=== PATIENT | male | born 1935 | race Caucasian/White ===

== ENCOUNTER 2016-08-16 09:29 | Inpatient (IN) | payer MEDICARE, OTHER ==
[~2016-08-16] VITALS: Ht 170.2 cm; Wt 97.9 kg
[2016-08-16] VITALS (7 sets, daily range): BP systolic 128–161; BP diastolic 63–88; PULSE 73–93; RESP 16–20; TEMP 97.6–98.3; O2SAT 93–98
[~2016-08-16 09:29] MED LIST: ATAC16TA; CARD8TAB6; CIPR250T2 PO; LEVO.15
[2016-08-16] MEDS ORDERED: DOXA1TAB43 PO (09:44)
[2016-08-16] MEDS ORDERED: LOSA100T PO (09:44)
[2016-08-16] MEDS ORDERED: LEVO125T4 PO (09:44)
[2016-08-16] MEDS ORDERED: HYDR12.56 PO (09:44)
[2016-08-16] MEDS ORDERED: SODIUM CHLORIDE 0.9% FLUSH 10 ML FLUSH IVF PRN (10:00)
[2016-08-16 10:12] LABS: AUTOMATED NEUTROPHIL # 5.6 TH/MM3 (1.8-7.7); BASOPHIL # 0.1 TH/MM3 (0-0.2); BASOPHIL % 0.8 % (0.0-2.0); EOSINOPHIL # 0.2 TH/MM3 (0-0.4); EOSINOPHIL % 2.4 % (0.0-4.0); HEMATOCRIT 41.9 % (39.0-51.0); HEMO FLAGS DIFF FINAL; LYMPH % 13.1 % (9.0-44.0); LYMPHOCYTE # 0.9 TH/MM3 (1.0-4.8); MEAN CELL VOLUME 95.3 FL (80.0-100.0); MEAN CORPUSCULAR HEMOGLOBIN 32.5 PG (27.0-34.0); MEAN CORPUSCULAR HGB CONC 34.1 % (32.0-36.0); MONO % 6.5 % (0.0-8.0); NEUT % 77.2 % (16.0-70.0); PLATELET COUNT 175 TH/MM3 (150-450); RED CELL DISTRIBUTION WIDTH 13.5 % (11.6-17.2); WHITE BLOOD COUNT 7.2 TH/MM3 (4.0-11.0)
[2016-08-16 10:21] LABS: APTT (PATIENT) 24.6 SEC (24.3-30.1); PROTHROMBIN TIME - PATIENT 10.7 SEC (9.8-11.6)
[2016-08-16 10:28] LABS: ALT (GPT) 29 U/L (12-78); ANION GAP 7 MEQ/L (5-15); AST (GOT) 24 U/L (15-37); BICARBONATE 24.5 MEQ/L (21.0-32.0); BLOOD UREA NITROGEN 16 MG/DL (7-18); CHLORIDE 108 MEQ/L (98-107); GLOMERULAR FILTRATION RATE 59 ML/MIN (>89); POTASSIUM 3.7 MEQ/L (3.5-5.1); SODIUM (NA) 139 MEQ/L (136-145)
[2016-08-16 10:32] LABS: ALKALINE PHOSPHATASE 80 U/L (45-117); TOTAL BILIRUBIN ADULT 0.9 MG/DL (0.2-1.0)
--- NOTE | 2016-08-16 10:34 | RADRPT ---
EXAM DATE/TIME: 08/16/2016 10:14 [place] COMPARISON: No previous studies available for comparison. INDICATIONS : Shortness of breath and chest pain. MEDICAL HISTORY : None. SURGICAL HISTORY : None. ENCOUNTER: Initial ACUITY: 1 day PAIN SCORE: 2/10 LOCATION: Bilateral chest. FINDINGS: The heart size is enlarged. The lungs are grossly clear. No effusion is seen. Spurs are seen in the t horacic spine CONCLUSION: Cardiomegaly Lauro Barksdale MD on August 16, 2016 at 10:32 Board Certified Radiologist. This report was verified electronically.
--- NOTE | 2016-08-16 11:38 | PD ---
HPI Chief Complaint: Respiratory Distress Time Seen by Provider: 09:55 Travel History International Travel<30 days: No Contact w/Intl Traveler<30days: No Traveled to known affect area: No History of Present Illness HPI Patient is an 80-year-old male who comes in after he had an episode of gasping for air earlier today. He said he woke up and went to take a shower when he suddenly felt like he could not breathe. He said this lasted about 5 minutes. He also complains of some orthopnea and dyspnea on exertion. He says he has not really noticed any swelling of his legs. He does take Lasix. He denies any chest pain. He denies any cough, cold, fevers. PFSH Past Medical History Diminished Hearing: Yes Hypertension: Yes Immunizations Current: Yes Thyroid Disease: Yes (HYPO) Tetanus Vaccination: < 5 Years Influenza Vaccination: Yes Past Surgical History Cholecystectomy: Yes (2002) Tonsillectomy: Yes Social History Alcohol Use: No Tobacco Use: No Substance Use: No Allergies-Medications (Allergen,Severity, Reaction): Coded Allergies: No Known Allergies (Verified , 08/23/09) Reported Meds & Prescriptions Reported Meds & Active Scripts Active Ciprofloxacin Hcl (Ciprofloxacin HCl) 250 Mg Tab 1 Tab PO BID Reported Hydrochlorothiazide 12.5 Mg Tab 12.5 Mg PO DAILY Levothyroxine (Levothyroxine Sodium) 125 Mcg Tab 125 Mcg PO DAILY Losartan (Losartan Potassium) 100 Mg Tab 100 Mg PO DAILY Doxazosin (Doxazosin Mesylate) 8 Mg Tab 8 Mg PO DAILY Cardura 8 mg (Doxazosin Mesylate) 8 Mg Tab Synthroid (Levothyroxine Sodium) 150 Mcg Tab Atacand (Candesartan Cilexetil) 16 Mg Tab Review of Systems Except as stated in HPI: all other systems reviewed are Neg General / Constitutional: No: Fever, Chills HENT: No: Headaches, Lightheadedness Cardiovascular: No: Chest Pain or Discomfort Respiratory: Positive: Shortness of Breath Gastrointestinal: No: Nausea, Vomiting Musculoskeletal: No: Edema, Pain Skin: No Change in Pigmentation Neurologic: No: Weakness, Dizziness Physical Exam Narrative GENERAL: Awake and alert, in no acute distress. SKIN: Focused skin assessment warm/dry. HEAD: Atraumatic. Normocephalic. EYES: Pupils equal and round. No scleral icterus. ENT: Mucous membranes pink and moist. NECK: Trachea midline. No JVD. CARDIOVASCULAR: Regular rate and rhythm. No murmur appreciated. RESPIRATORY: No accessory muscle use. Clear to auscultation. Breath sounds equal bilaterally. GASTROINTESTINAL: Abdomen soft, non-tender, nondistended. MUSCULOSKELETAL: No obvious deformities. No clubbing. No cyanosis. No edema. NEUROLOGICAL: Awake and alert. No obvious cranial nerve deficits. Motor grossly within normal limits. Normal speech. PSYCHIATRIC: Appropriate mood and affect; insight and judgment normal. Data Data Last Documented VS Vital Signs Date Time Temp Pulse Resp B/P Pulse Ox O2 Delivery O2 Flow Rate FiO2 08/16/16 10:08 95 Room Air 08/16/16 10:08 74 08/16/16 09:36 98.3 20 161/74 Orders Complete Blood Count With Diff (08/16/16 09:56) Comprehensive Metabolic Panel (08/16/16 09:56) B-Type Natriuretic Peptide (08/16/16 09:56) Act Partial Throm Time (Ptt) (08/16/16 09:56) Prothrombin Time / Inr (Pt) (08/16/16 09:56) Troponin I (08/16/16 09:56) Iv Access Insert/Monitor (08/16/16 09:56) Ecg Monitoring (08/16/16 09:56) Oximetry (08/16/16 09:56) Oxygen Administration (08/16/16 09:56) Chest, Pa & Lat (08/16/16 09:56) Sodium Chloride 0.9% Flush (Ns Flush) (08/16/16 10:00) Admit Order (Ed Use Only) (08/16/16 ) Labs Laboratory Tests Test 08/16/16 10:00 White Blood Count 7.2 TH/MM3 Red Blood Count 4.40 MIL/MM3 Hemoglobin 14.3 GM/DL Hematocrit 41.9 % Mean Corpuscular Volume 95.3 FL Mean Corpuscular Hemoglobin 32.5 PG Mean Corpuscular Hemoglobin 34.1 % Concent Red Cell Distribution Width 13.5 % Platelet Count 175 TH/MM3 Mean Platelet Volume 7.9 FL Neutrophils (%) (Auto) 77.2 % Lymphocytes (%) (Auto) 13.1 % Monocytes (%) (Auto) 6.5 % Eosinophils (%) (Auto) 2.4 % Basophils (%) (Auto) 0.8 % Neutrophils # (Auto) 5.6 TH/MM3 Lymphocytes # (Auto) 0.9 TH/MM3 Monocytes # (Auto) 0.5 TH/MM3 Eosinophils # (Auto) 0.2 TH/MM3 Basophils # (Auto) 0.1 TH/MM3 CBC Comment DIFF FINAL Differential Comment Prothrombin Time 10.7 SEC Prothromb Time International 1.0 RATIO Ratio Activated Partial 24.6 SEC Thromboplast Time Sodium Level 139 MEQ/L Potassium Level 3.7 MEQ/L Chloride Level 108 MEQ/L Carbon Dioxide Level 24.5 MEQ/L Anion Gap 7 MEQ/L Blood Urea Nitrogen 16 MG/DL Creatinine 1.19 MG/DL Estimat Glomerular Filtration 59 ML/MIN Rate Random Glucose 147 MG/DL Calcium Level 9.1 MG/DL Total Bilirubin 0.9 MG/DL Aspartate Amino Transf 24 U/L (AST/SGOT) Alanine Aminotransferase 29 U/L (ALT/SGPT) Alkaline Phosphatase 80 U/L Troponin I 0.02 NG/ML B-Type Natriuretic Peptide 284 PG/ML Total Protein 6.9 GM/DL Albumin 3.6 GM/DL MDM Medical Decision Making Medical Screen Exam Complete: Yes Emergency Medical Condition: Yes Interpretation(s) ECG shows left bundle-branch block, no old to compare to. Differential Diagnosis Pneumonia versus CHF versus ACS Narrative Course Patient is an 80-year-old male who comes in after an episode of shortness of breath. Exam shows no acute abnormalities. IV established, labs sent. Patient connected to the youth nutritional monitor. Chest x-ray performed shows cardiomegaly, no edema. Lab shows a BNP of 284. Troponin is negative. Shortness of breath is likely due to CHF, though patient has never been formally diagnosed with this. Patient placed in observation for CHF and ACS rule out. He received aspirin by EMS. Diagnosis Primary Impression: CHF (congestive heart failure) Qualified Code: I50.9 - Acute congestive heart failure, unspecified congestive heart failure type Admitting Information Admitting Physician Requests: Observation Condition: Stable Almita Alves MD Aug 16, 2016 11:38
[2016-08-16] MEDS ORDERED: SODIUM CHLORIDE 0.9% FLUSH 10 ML FLUSH IV FLUSH PRN (11:45)
[2016-08-16] MEDS ORDERED: NALOXONE HCL 0.4 MG/ML AMP IV PRN (11:45)
[2016-08-16] MEDS ORDERED: ACETAMINOPHEN 325 MG TAB PO PRN (11:45)
[2016-08-16] MEDS ORDERED: ONDANSETRON HCL 4 MG/2 ML VIAL IVP PRN (11:45)
[2016-08-16] MEDS: ENOXAPARIN SODIUM 40 MG/0.4 ML SYRINGE SQ SCH (12:33)
[2016-08-16] MEDS: FUROSEMIDE 20 MG/2 ML VIAL IV PUSH SCH ×2 (12:33→17:39)
--- NOTE | 2016-08-16 16:18 | HHI.HP ---
[facility] Service [facility] Primary Care Physician Non-Staff Admission Diagnosis CHF, ACS Diagnoses: (1) Acute respiratory distress Diagnosis: Principal (2) Elevated brain natriuretic peptide (BNP) level Diagnosis: Principal Travel History International Travel<30 Days: No Contact w/Intl Traveler <30 Da: No Traveled to Known Affected Are: No History of Present Illness Mr. Damon is an 80 year old male. This morning he awoke with respiratory distress. He came into the ER for an evaluation. Findings might suggest CHF, though he has not history of CHF. BNP is elevated. He reports that he has HTN at baseline, but no other conditions. Alternate causes of is fluid excess and acute dyspnea could be an allergic reaction, a viral manifestation, or flash pulmonary edema. He has no history of flash pulmonary edema. He has no other viral symptoms. He did eat oysters the preceding night and does not typically go out or consume sea food. His reports that he may have had symptoms of increased, but mild dyspnea with exertion in the past month. No other complaints. no chest pain. No distress when seen. Review of Systems Constitutional: DENIES: Diaphoretic episodes, Weight loss, Dizziness Endocrine: DENIES: Heat/cold intolerance Eyes: DENIES: Blurred vision, Diplopia Respiratory: COMPLAINS OF: Shortness of breath Cardiovascular: DENIES: Chest pain, Syncope Gastrointestinal: DENIES: Abdominal pain, Bloody stools Musculoskeletal: DENIES: Joint pain, Stiffness Integumentary: DENIES: Abnormal pigmentation Hematologic/lymphatic: DENIES: Bruising Immunologic/allergic: DENIES: Eczema Neurologic: DENIES: Abnormal gait, Headache Psychiatric: DENIES: Anxiety, Confusion Past Family Social History Past Medical History HTN Hypothyroidism Past Surgical History none reported Reported Medications Reported Meds & Active Scripts Active Ciprofloxacin Hcl (Ciprofloxacin HCl) 250 Mg Tab 1 Tab PO BID Reported Hydrochlorothiazide 12.5 Mg Tab 12.5 Mg PO DAILY Levothyroxine (Levothyroxine Sodium) 125 Mcg Tab 125 Mcg PO DAILY Losartan (Losartan Potassium) 100 Mg Tab 100 Mg PO DAILY Doxazosin (Doxazosin Mesylate) 8 Mg Tab 8 Mg PO DAILY Cardura 8 mg (Doxazosin Mesylate) 8 Mg Tab Synthroid (Levothyroxine Sodium) 150 Mcg Tab Atacand (Candesartan Cilexetil) 16 Mg Tab Allergies: Coded Allergies: No Known Allergies (Verified , 08/23/09) Active Ordered Medications Administered Medications Medications (Trade) Dose Ordered Sig/Sally Route PRN Reason Start Time Stop Time Status Last Admin Dose Admin Enoxaparin Sodium (Lovenox Inj) 40 mg Q24H SQ 08/16/16 11:45 08/16/16 12:33 Furosemide (Lasix Inj) 20 mg BID@09,18 IV PUSH 08/16/16 11:45 08/16/16 12:33 Family History HTN Social History No smoking No alcohol abuse No drug abuse Physical Exam Vital Signs Vital Signs Date Time Temp Pulse Resp B/P Pulse Ox O2 Delivery O2 Flow Rate FiO2 08/16/16 13:16 75 16 154/88 98 08/16/16 10:08 95 Room Air 08/16/16 10:08 74 08/16/16 09:36 98.3 93 20 161/74 93 Physical Exam GENERAL: NAD, A&Ox3 SKIN: Warm and dry. No diaphoresis HEAD: Normocephalic. EYES: No scleral icterus. No injection or drainage. NECK: Supple, trachea midline. No JVD or lymphadenopathy. CARDIOVASCULAR: Regular rate and rhythm without murmurs, gallops, or rubs. No visualized JVD elevation. RESPIRATORY: Breath sounds equal bilaterally. No accessory muscle use. Clear to auscultation bilaterally. GASTROINTESTINAL: Abdomen soft, non-tender, nondistended. MUSCULOSKELETAL: No cyanosis, or edema. BACK: Nontender without obvious deformity. No CVA tenderness. Laboratory Laboratory Tests Test 08/16/16 10:00 White Blood Count 7.2 Red Blood Count 4.40 Hemoglobin 14.3 Hematocrit 41.9 Mean Corpuscular Volume 95.3 Mean Corpuscular Hemoglobin 32.5 Mean Corpuscular Hemoglobin 34.1 Concent Red Cell Distribution Width 13.5 Platelet Count 175 Mean Platelet Volume 7.9 Neutrophils (%) (Auto) 77.2 Lymphocytes (%) (Auto) 13.1 Monocytes (%) (Auto) 6.5 Eosinophils (%) (Auto) 2.4 Basophils (%) (Auto) 0.8 Neutrophils # (Auto) 5.6 Lymphocytes # (Auto) 0.9 Monocytes # (Auto) 0.5 Eosinophils # (Auto) 0.2 Basophils # (Auto) 0.1 CBC Comment DIFF FINAL Differential Comment Prothrombin Time 10.7 Prothromb Time International 1.0 Ratio Activated Partial 24.6 Thromboplast Time Sodium Level 139 Potassium Level 3.7 Chloride Level 108 Carbon Dioxide Level 24.5 Anion Gap 7 Blood Urea Nitrogen 16 Creatinine 1.19 Estimat Glomerular Filtration 59 Rate Random Glucose 147 Calcium Level 9.1 Total Bilirubin 0.9 Aspartate Amino Transf 24 (AST/SGOT) Alanine Aminotransferase 29 (ALT/SGPT) Alkaline Phosphatase 80 Troponin I 0.02 B-Type Natriuretic Peptide 284 Total Protein 6.9 Albumin 3.6 Result Diagram: 08/16/16 1000 08/16/16 1000 Imaging Last Impressions Chest X-Ray 08/16/16 0956 Signed Impressions: Service Date/Time: Tuesday, August 16, 2016 10:14 - CONCLUSION: Cardiomegaly Lauro Barksdale MD Assessment and Plan Problem List: (1) Acute respiratory distress ICD Code: R06.00 Status: Acute (2) Elevated brain natriuretic peptide (BNP) level ICD Code: R79.89 Status: Acute (3) HTN (hypertension) ICD Code: I10 Status: Chronic (4) Hypothyroid ICD Code: E03.9 Status: Chronic Assessment and Plan A/P: Acute Respiratory Distress Elevated BNP Possible underlying CHF Evaluate with an echocardiogram Alternatively he may have had an allergic reaction Follow clinically for signs of allergy, no treatment at this time due to spontaneous resolution of symptoms Lasix BID for now Repeat BNP in AM HTN Continue baseline treatments Follow BP Hypothyroidism Continue synthroid Follow as an outpatient Physician Certification 2 Midnight Certification Type: Admission for Inpatient Services Order for Inpatient Services The services are ordered in accordance with Medicare regulations or non- Medicare payer requirements, as applicable. In the case of services not specified as inpatient-only, they are appropriately provided as inpatient services in accordance with the 2-midnight benchmark. Estimated LOS (days): 2 days is the estimated time the patient will need to remain in the hospital, assuming treatment plan goals are met and no additional complications. Post-Hospital Plan: Naga Guerra MD Aug 16, 2016 16:18
[2016-08-16] MEDS: SODIUM CHLORIDE 0.9% FLUSH 10 ML FLUSH IV FLUSH SCH (23:01)
[2016-08-17] VITALS (7 sets, daily range): BP systolic 109–130; BP diastolic 51–61; PULSE 67–83; RESP 16–18; TEMP 97.6–98.6; O2SAT 92–97
[2016-08-17 04:20] LABS: AUTOMATED NEUTROPHIL # 4.9 TH/MM3 (1.8-7.7); BASOPHIL # 0.1 TH/MM3 (0-0.2); BASOPHIL % 0.9 % (0.0-2.0); EOSINOPHIL # 0.2 TH/MM3 (0-0.4); EOSINOPHIL % 2.8 % (0.0-4.0); HEMATOCRIT 39.8 % (39.0-51.0); HEMO FLAGS DIFF FINAL; LYMPH % 23.9 % (9.0-44.0); LYMPHOCYTE # 1.9 TH/MM3 (1.0-4.8); MEAN CELL VOLUME 94.9 FL (80.0-100.0); MEAN CORPUSCULAR HEMOGLOBIN 32.8 PG (27.0-34.0); MEAN CORPUSCULAR HGB CONC 34.5 % (32.0-36.0); MONO % 10.4 % (0.0-8.0); PLATELET COUNT 187 TH/MM3 (150-450); RED CELL DISTRIBUTION WIDTH 13.7 % (11.6-17.2); WHITE BLOOD COUNT 7.9 TH/MM3 (4.0-11.0)
[2016-08-17 04:41] LABS: BICARBONATE 27.4 MEQ/L (21.0-32.0); POTASSIUM 3.6 MEQ/L (3.5-5.1)
[2016-08-17] MEDS: LEVOTHYROXINE SODIUM 125 MCG TAB PO SCH (05:23)
[2016-08-17] MEDS ORDERED: DOXAZOSIN MESYLATE 4 MG TAB PO SCH (09:00)
[2016-08-17] MEDS ORDERED: PNEUMOCOCCAL POLYVALENT INJ 25 MCG/0.5 ML SYR IM ONE (09:00)
[2016-08-17] MEDS: SODIUM CHLORIDE 0.9% FLUSH 10 ML FLUSH IV FLUSH SCH ×2 (13:17→20:38)
[2016-08-17] MEDS: LOSARTAN 50 MG TAB PO SCH (13:18)
[2016-08-17] MEDS: ENOXAPARIN SODIUM 40 MG/0.4 ML SYRINGE SQ SCH (13:18)
--- NOTE | 2016-08-17 14:25 | EKG ---
Date Performed: 08/16/2016 Time Performed: 09:43:37 PTAGE: 80 years EKG: Sinus rhythm MARKED LEFT AXIS DEVIATION LEFT BUNDLE BRANCH BLOCK ABNORMAL ECG NO PREVIOUS TRACING DOCTOR: Vince Corley Interpretating Date/Time 08/17/2016 14:22:23
--- NOTE | 2016-08-17 16:45 | HHI.PR ---
Subjective Remarks Preliminary echo finding is an EF of 45-50%. Official echo report is pending. He has not had any other symptoms. His only complaint today is difficulty sleeping in the hospital. Objective Vital Signs Date Time Temp Pulse Resp B/P Pulse Ox O2 Delivery O2 Flow Rate FiO2 08/17/16 12:00 97.6 73 16 109/61 96 08/17/16 08:00 98.0 83 16 123/58 95 08/17/16 04:00 97.9 67 18 130/60 92 08/17/16 00:00 98.6 70 18 109/51 95 08/16/16 20:12 88 08/16/16 20:00 97.6 73 18 128/63 93 08/16/16 17:30 98.1 76 18 139/72 95 I/O 08/16/16 08/16/16 08/16/16 08/17/16 08/17/16 08/17/16 07:00 15:00 23:00 07:00 15:00 23:00 Intake Total 480 ml 340 ml Output Total 550 ml Balance -70 ml 340 ml Intake Oral 480 ml 340 ml Output Urine Total 550 ml # Voids 2 # Bowel Movements 0 Result Diagram: 08/17/16 0341 08/17/16 0341 Imaging Last Impressions Chest X-Ray 08/16/16 0956 Signed Impressions: Service Date/Time: Tuesday, August 16, 2016 10:14 - CONCLUSION: Cardiomegaly Lauro Barksdale MD Procedures echo Objective Remarks GENERAL: NAD, A&Ox3 SKIN: Warm and dry. HEAD: Normocephalic. EYES: No scleral icterus. No injection or drainage. NECK: Supple, trachea midline. No JVD or lymphadenopathy. CARDIOVASCULAR: Regular rate and rhythm without murmurs, gallops, or rubs. RESPIRATORY: Breath sounds equal bilaterally. No accessory muscle use. GASTROINTESTINAL: Abdomen soft, non-tender, nondistended. MUSCULOSKELETAL: No cyanosis, or edema. BACK: Nontender without obvious deformity. No CVA tenderness. Medications and IVs Administered Medications Medications (Trade) Dose Ordered Sig/Sally Route PRN Reason Start Time Stop Time Status Last Admin Dose Admin Sodium Chloride (NS Flush) 2 ml BID IV FLUSH 08/16/16 21:00 08/17/16 13:17 Enoxaparin Sodium (Lovenox Inj) 40 mg Q24H SQ 08/16/16 11:45 08/17/16 13:18 Doxazosin Mesylate (Cardura) 8 mg DAILY PO 08/17/16 09:00 08/17/16 13:18 Levothyroxine Sodium (Synthroid) 125 mcg DAILY@0600 PO 08/17/16 06:00 08/17/16 05:23 Losartan Potassium (Cozaar) 100 mg DAILY PO 08/17/16 09:00 08/17/16 13:18 A/P Problem List: (1) CHF (congestive heart failure) ICD Code: I50.9 Assessment & Plan: New finding EF is 45-50% (preliminary) Cardiology consult Follow clinically (2) Elevated brain natriuretic peptide (BNP) level ICD Code: R79.89 Assessment & Plan: Mild elevation Diuresis provided overnight Diuresis discontinued due to increased creatinine overnight Clinically he is not appearing fluid overloaded today (3) HTN (hypertension) ICD Code: I10 Assessment & Plan: Stable and controlled No change to present treatment On Losartan On Cardura (4) Hypothyroid ICD Code: E03.9 Assessment & Plan: Stable Follow as an outpatient (5) Acute respiratory distress ICD Code: R06.00 Assessment & Plan: Resolved Etiology may be a CHF exacerbation Alternate etiologies may have been transient anaphylaxis or flash pulmonary edema Echo report pending and should help elucidate possible cardiac involvement Problem Qualifiers (1) CHF (congestive heart failure): Qualified Code: I50.9 - Acute congestive heart failure, unspecified congestive heart failure type Naga Cade MD Aug 17, 2016 16:45
--- NOTE | 2016-08-17 20:06 | EC ---
Study Study Date:08/17/2016 STUDY CONCLUSIONS SUMMARY - Left ventricle: The cavity size was mildly to moderately dilated. Wall thickness was normal. Systolic function was moderately reduced. The estimated ejection fraction was in the range of 30% to 35%. Wall motion was normal; there were no regional wall motion abnormalities. - Aortic valve: Calcified annulus. Trileaflet; moderately thickened leaflets. Mild regurgitation. - Mitral valve: Moderate regurgitation. If LV function is below 40, please consider prescribing an ACEI or ARB or document rationale for non-use. PROCEDURE DATA STUDY STATUS: Elective. Procedure: Transthoracic echocardiography. Image quality was good. Scanning was performed from the parasternal, apical, and subcostal acoustic windows. Study completion: The patient tolerated the procedure well. Transthoracic echocardiography. M-mode, complete 2D, complete spectral Doppler, and color Doppler. Height: Height: 67in. Weight: Weight: 208.6lb. Body mass index: BMI: 32.7kg/m^2. Body surface area: BSA: 2.06m^2. Patient status: Inpatient. CARDIAC ANATOMY LEFT VENTRICLE: The cavity size was mildly to moderately dilated. Wall thickness was normal. Systolic function was moderately reduced. The estimated ejection fraction was in the range of 30% to 35%. Wall motion was normal; there were no regional wall motion abnormalities. AORTIC VALVE: Calcified annulus. Trileaflet; moderately thickened leaflets. Doppler: Transvalvular velocity was within the normal range. There was no stenosis. Mild regurgitation. Valve area: 1.96cm^2 (Vmax). Indexed valve area: 0.95cm^2/m^2 (Vmax). AORTA: Aortic root: The aortic root was normal in size. MITRAL VALVE: Structurally normal valve. Doppler: Transvalvular velocity was within the normal range. There was no evidence for stenosis. Moderate regurgitation. Valve area by pressure half-time: 3.61cm^2. Indexed valve area by pressure half-time: 1.75cm^2/m^2. Mean gradient: 3mm Hg (D). Peak gradient: 7mm Hg (D). LEFT ATRIUM: The atrium was normal in size. RIGHT VENTRICLE: The cavity size was normal. Wall thickness was normal. PULMONIC VALVE: Doppler: Transvalvular velocity was within the normal range. There was no evidence for stenosis. No regurgitation. TRICUSPID VALVE: Structurally normal valve. Doppler: Transvalvular velocity was within the normal range. Trace regurgitation. Peak gradient: 8mm Hg (D). PULMONARY ARTERY: The main pulmonary artery was normal-sized. Systolic pressure was within the normal range. RIGHT ATRIUM: The atrium was normal in size. PERICARDIUM: There was no pericardial effusion. SYSTEMIC VEINS: Inferior vena cava: The vessel was normal in size. Patient weight: 208.6lb _Ejection fraction:_ 65-75% _Fractional shortening:_ 32% up to 5Kg 5-11.5Kg 11.6-22.9Kg 23-45Kg 45-57Kg Aortic Root 7-13 <17 13-22 17-27 17-27 LA diam 6-13 <23 24-38 33-47 37-40 RVID 10-17 7-15 7-15 7-18 8-17 LVIDd 12-22 <32 24-38 33-47 37-40 LVPW 2-4 3-6 5-7 6-8 7-8 IVS 2-4 3-6 5-7 6-8 7-8 BASIC MEASUREMENTS ADULT NORMAL Left ventricle LV internal dimension, ED, chordal *59.3 mm 43-52 level, PLAX LV internal dimension, ES, chordal *47.8 mm 23-38 level, PLAX Fractional shortening, chordal level, *19 % >29 PLAX LV posterior wall thickness, ED 10.8 mm IVS/LVPW ratio, ED 0.9 <1.3 Volume, ED, MOD, 1-plane 148 ml Volume, ES, MOD, 1-plane 83 ml Ejection fraction, MOD, 1-plane 44 % Stroke volume, MOD, 1-plane 65 ml Volume index, ED, MOD, 1-plane 72 ml/m^2 Volume index, ES, MOD, 1-plane 40 ml/m^2 Stroke index, MOD, 1-plane 31.6 ml/m^2 Ventricular septum Septal thickness, ED 9.75 mm Right ventricle RV internal dimension, ED, PLAX 28.8 mm 19-38 BASIC MEASUREMENTS ADULT NORMAL Left ventricle LV internal dimension, ED *68.6 mm 37-56 LV internal dimension, ES 57.6 mm Fractional shortening *16 % 29-45 LV posterior wall, ED 9.22 mm 6-11 Septal/posterior wall ratio, ED 1.13 Relative wall thickness, ED 0.27 <0.45 Volume, ED, Teichholz 244 ml Volume, ES, Teichholz 164 ml Ejection fraction, Teichholz *32.8 % 64-83 Stroke volume, Teichholz 80 ml Volume index, ED, Teichholz 118 ml/m^2 Volume index, ES, Teichholz 80 ml/m^2 Stroke index, Teichholz 38.8 ml/m^2 Wall mass 303.3 g Wall mass index 147.2 g/m^2 Mass/height 1.78 g/cm Ventricular septum Septal thickness, ED 10.4 mm Aorta Root diameter, ED 33 mm 20-37 Left atrium Anterior-posterior dimension, ES 39 mm 19-40 Anterior-posterior dimension index, ES 1.89 cm/m^2 <2.2 LA/aortic root ratio 1.18 DOPPLER MEASUREMENTS ADULT NORMAL Aortic valve Peak velocity, S 134 cm/s VTI, S 28.9 cm Valve area, Vmax 1.96 cm^2 Valve area index, Vmax 0.95 cm^2/m^2 Regurgitant velocity, ED 270 cm/s Regurgitant deceleration 1940 cm/s^2 Regurgitant pressure half-time 346 ms Regurgitant gradient, ED 29 mm Hg Mitral valve Peak E-wave velocity 128 cm/s Peak A-wave velocity 101 cm/s Mean velocity, D 81.9 cm/s Pressure half-time 61 ms Mean gradient, D 3 mm Hg Peak gradient, D 7 mm Hg Peak E/A ratio 1.3 Valve area, pressure half-time 3.61 cm^2 Valve area index, pressure half-time 1.75 cm^2/m^2 Tricuspid valve Peak gradient, D 8 mm Hg Maximal inflow velocity 137 cm/s Pulmonic valve Peak velocity, S 64.1 cm/s LEGEND: Mean values are shown as u=mean value. Asterisk (*) galicia values outside specified normal range. Muriel Nicholson [id number]
[2016-08-17] MEDS: traZODone HCL 50 MG TAB PO SCH (20:35)
[2016-08-17] MEDS ORDERED: CARVEDILOL 6.25 MG TAB PO ONE (22:00)
[2016-08-18] VITALS (7 sets, daily range): BP systolic 95–120; BP diastolic 51–63; PULSE 65–73; RESP 16–22; TEMP 97.6–98.4; O2SAT 93–96
[2016-08-18] MEDS: LEVOTHYROXINE SODIUM 125 MCG TAB PO SCH (05:39)
--- NOTE | 2016-08-18 07:56 | MB ---
cc: ALMA MCKENZIE DATE OF CONSULTATION: 08/17/2016 HISTORY OF PRESENT ILLNESS Mr. Damon is a very pleasant 80-year-old white male with no previous cardiac history. He woke up with shortness of breath yesterday and came to the emergency room. He has not had any shortness of breath. He has a history of hypertension. He was found to have elevated BNP. He has had increased dyspnea on exertion over the last month. PAST MEDICAL HISTORY 1. Hypertension. 2. Hypothyroidism. PAST SURGICAL HISTORY No major surgeries. MEDICATIONS 1. Hydrochlorothiazide. 2. Levothyroxine/Synthroid. 3. Losartan. 4. Doxazosin. 5. Cardura. 6. Atacand. ALLERGIES None. SOCIAL HISTORY The patient does not smoke. He drinks alcohol infrequently. He is . FAMILY HISTORY Positive for heart disease in his uncle. REVIEW OF SYSTEMS Otherwise negative. PHYSICAL EXAMINATION VITAL SIGNS: Blood pressure 129/58, pulse 76 and regular. HEENT: Negative. NECK: 2+ carotid upstrokes. No bruits. LUNGS: Clear. HEART: Regular with no murmur or gallop. ABDOMEN: Soft. No bruit. EXTREMITIES: Without edema. 2+ distal pulses. NEUROLOGIC: Grossly nonfocal. EKG EKG was reviewed and showed normal sinus rhythm, left axis and left bundle branch block. LABORATORY Hemoglobin 13.8. Potassium 3.6. Creatinine 1.2 and 1.4. Troponin 0.02, 0.10, and 0.08. BNP 284 and 308. ECHOCARDIOGRAM Echocardiogram was reviewed and showed left ventricular enlargement, moderate to severe left ventricular dysfunction, septal wall motion abnormality, and moderate mitral regurgitation. DIAGNOSIS 1. Acute congestive heart failure (systolic). 2. 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 3. Left bundle branch block. 4. Hypertension. DISPOSITION Mr. Damon was found to have evidence of moderate to severe left ventricular dysfunction. I recommend to continue diuresis closely monitoring his renal function. I recommend to continue therapy for hypertension. Mr. Damon will discontinue doxazosin and will start carvedilol. I will follow him for cardiology during his hospitalization. I will also see him back for follow-up in our office after discharge. MD VISHAL Guevara/RICARDO /9:22 PM /7:44 AM MTDMarta
[2016-08-18] MEDS: LOSARTAN 50 MG TAB PO SCH (10:24)
[2016-08-18] MEDS: CARVEDILOL 12.5 MG TAB PO SCH ×2 (10:24→20:33)
[2016-08-18] MEDS: SODIUM CHLORIDE 0.9% FLUSH 10 ML FLUSH IV FLUSH SCH ×2 (10:25→20:33)
[2016-08-18] MEDS: ENOXAPARIN SODIUM 40 MG/0.4 ML SYRINGE SQ SCH (10:25)
--- NOTE | 2016-08-18 15:04 | PD.CARD.PN ---
Subjective Subjective Remarks No CP, SOB improved, ambulating in the halls Objective Medications Current Medications Medications (Trade) Dose Ordered Sig/Sally Route Start Time Stop Time Status Last Admin (NS Flush) 2 ml UNSCH PRN IVF 08/16/16 10:00 (NS Flush) 2 ml UNSCH PRN IV FLUSH 08/16/16 11:45 (NS Flush) 2 ml BID IV FLUSH 08/16/16 21:00 08/18/16 10:25 (Tylenol) 650 mg Q4H PRN PO 08/16/16 11:45 (Zofran Inj) 4 mg Q6H PRN IVP 08/16/16 11:45 (Lovenox Inj) 40 mg Q24H SQ 08/16/16 11:45 08/18/16 10:25 (Narcan Inj) 0.4 mg UNSCH PRN IV 08/16/16 11:45 (Synthroid) 125 mcg DAILY@0600 PO 08/17/16 06:00 08/18/16 05:39 (Cozaar) 100 mg DAILY PO 08/17/16 09:00 08/18/16 10:24 (Desyrel) 50 mg HS PO 08/17/16 21:00 08/17/16 20:35 (Coreg) 12.5 mg Q12HR PO 08/18/16 09:00 08/18/16 10:24 Vital Signs / I&O Vital Signs Date Time Temp Pulse Resp B/P Pulse Ox O2 Delivery O2 Flow Rate FiO2 08/18/16 12:00 98.0 70 20 96 08/18/16 10:25 73 120/63 08/18/16 08:00 97.6 73 20 105/57 93 08/18/16 05:44 110/60 08/18/16 04:32 98.2 71 22 95/51 93 08/17/16 20:53 98.0 80 16 119/59 95 08/17/16 20:02 79 08/17/16 16:00 98.1 76 16 129/58 97 I/O 08/17/16 08/17/16 08/17/16 08/18/16 08/18/16 08/18/16 07:00 15:00 23:00 07:00 15:00 23:00 Intake Total 340 ml 600 ml 480 ml 0 ml 360 ml Output Total 1100 ml 500 ml 500 ml Balance 340 ml 600 ml -620 ml -500 ml -140 ml Intake Oral 340 ml 600 ml 480 ml 0 ml 360 ml IV Total 0 ml Output Urine Total 1100 ml 500 ml 500 ml # Voids 2 1 # Bowel Movements 1 0 0 1 Physical Exam GENERAL: IN NAD SKIN: Warm and dry. HEAD: Normocephalic. EYES: No scleral icterus. No injection or drainage. NECK: Supple, trachea midline. No JVD or lymphadenopathy. CARDIOVASCULAR: Regular rate and rhythm without murmurs, gallops, or rubs. RESPIRATORY: Breath sounds equal bilaterally. No accessory muscle use. GASTROINTESTINAL: Abdomen soft, non-tender, nondistended. MUSCULOSKELETAL: No cyanosis, or edema. Laboratory Laboratory Tests Test 08/16/16 08/17/16 10:00 03:41 Prothrombin Time 10.7 SEC Prothromb Time International 1.0 RATIO Ratio Activated Partial 24.6 SEC Thromboplast Time Total Bilirubin 0.9 MG/DL Aspartate Amino Transf 24 U/L (AST/SGOT) Alanine Aminotransferase 29 U/L (ALT/SGPT) Alkaline Phosphatase 80 U/L Total Protein 6.9 GM/DL Albumin 3.6 GM/DL White Blood Count 7.9 TH/MM3 Red Blood Count 4.20 MIL/MM3 Hemoglobin 13.8 GM/DL Hematocrit 39.8 % Mean Corpuscular Volume 94.9 FL Mean Corpuscular Hemoglobin 32.8 PG Mean Corpuscular Hemoglobin 34.5 % Concent Red Cell Distribution Width 13.7 % Platelet Count 187 TH/MM3 Mean Platelet Volume 8.0 FL Neutrophils (%) (Auto) 62.0 % Lymphocytes (%) (Auto) 23.9 % Monocytes (%) (Auto) 10.4 % Eosinophils (%) (Auto) 2.8 % Basophils (%) (Auto) 0.9 % Neutrophils # (Auto) 4.9 TH/MM3 Lymphocytes # (Auto) 1.9 TH/MM3 Monocytes # (Auto) 0.8 TH/MM3 Eosinophils # (Auto) 0.2 TH/MM3 Basophils # (Auto) 0.1 TH/MM3 CBC Comment DIFF FINAL Differential Comment Sodium Level 139 MEQ/L Potassium Level 3.6 MEQ/L Chloride Level 106 MEQ/L Carbon Dioxide Level 27.4 MEQ/L Anion Gap 6 MEQ/L Blood Urea Nitrogen 21 MG/DL Creatinine 1.38 MG/DL Estimat Glomerular Filtration 49 ML/MIN Rate Random Glucose 97 MG/DL Calcium Level 8.8 MG/DL Troponin I 0.08 NG/ML B-Type Natriuretic Peptide 308 PG/ML Imaging Last Impressions Chest X-Ray 08/16/16 0956 Signed Impressions: Service Date/Time: Tuesday, August 16, 2016 10:14 - CONCLUSION: Cardiomegaly Lauro Barksdale MD Assessment and Plan Problem List: (1) CHF (congestive heart failure) (2) Cardiomyopathy (3) HTN (hypertension) (4) Hypothyroid (5) LBBB (left bundle branch block) Assessment and Plan Symptoms improved. Continue losartan and carvedilol. BP control. Monitor renal fx. Discharge home when stable. Increase activity. Will schedule f/u in our office soon after discharge. Problem Qualifiers (1) CHF (congestive heart failure): Qualified Code: I50.9 - Acute congestive heart failure, unspecified congestive heart failure type Muriel So MD Aug 18, 2016 15:04
--- NOTE | 2016-08-18 17:06 | HHI.PR ---
Subjective Remarks Patient felt palpitation when he got the V. tach today No chest pain, still feeling slight short of breath No fever or chills Objective Vitals Vital Signs Date Time Temp Pulse Resp B/P Pulse Ox O2 Delivery O2 Flow Rate FiO2 08/18/16 16:00 98.0 65 20 100/56 96 08/18/16 16:00 98.0 65 20 100/56 96 08/18/16 12:00 98.0 70 20 96 08/18/16 10:25 73 120/63 08/18/16 08:00 97.6 73 20 105/57 93 08/18/16 05:44 110/60 08/18/16 04:32 98.2 71 22 95/51 93 08/17/16 20:53 98.0 80 16 119/59 95 08/17/16 20:02 79 I/O 08/17/16 08/17/16 08/17/16 08/18/16 08/18/16 08/18/16 07:00 15:00 23:00 07:00 15:00 23:00 Intake Total 340 ml 600 ml 480 ml 0 ml 360 ml Output Total 1100 ml 500 ml 500 ml Balance 340 ml 600 ml -620 ml -500 ml -140 ml Intake Oral 340 ml 600 ml 480 ml 0 ml 360 ml IV Total 0 ml Output Urine Total 1100 ml 500 ml 500 ml # Voids 2 1 # Bowel Movements 1 0 0 1 Result Diagram: 08/17/16 0341 08/17/16 0341 Objective Remarks GENERAL: This is a well-nourished, well-developed patient, in no apparent distress. CARDIOVASCULAR: Regular rate and rhythm without murmurs, gallops, or rubs. RESPIRATORY: Right basilar coarse crackles. No wheezes, rales, or rhonchi. GASTROINTESTINAL: Abdomen soft, non-tender, nondistended. Normal active bowel sounds MUSCULOSKELETAL: Extremities without clubbing, cyanosis, or edema. NEURO: Alert & Oriented x4 to person, place, time, situation. Moves all ext x4 A/P Problem List: (1) Acute respiratory distress ICD Code: R06.00 Status: Acute (2) Elevated brain natriuretic peptide (BNP) level ICD Code: R79.89 Status: Acute (3) HTN (hypertension) ICD Code: I10 Status: Chronic (4) Hypothyroid ICD Code: E03.9 Status: Chronic Assessment and Plan Acute respiratory distress mostly due to CHF with elevated BNP Advanced CHF EF 30 35%, ischemic versus dilated cardiomyopathy 9 beats of V. tach mostly due to cardiomyopathy Hypertension Hypothyroidism DVT prophylaxis Plan: Continue close monitoring of BMP and BNP, correct electrolyte disturbance I will refrain from resuming diuretic due to low blood pressure I discussed with cardiology patient regarding the V. tach and hypotension, ? Ischemic workup Continue on hypertensive medication DVT prophylaxis with Karey Winslow MD Aug 18, 2016 17:06
[2016-08-18] MEDS: traZODone HCL 50 MG TAB PO SCH (20:33)
[2016-08-18 21:08] LABS: BICARBONATE 27.1 MEQ/L (21.0-32.0); POTASSIUM 3.8 MEQ/L (3.5-5.1)
[2016-08-19] VITALS (9 sets, daily range): BP systolic 93–127; BP diastolic 50–73; PULSE 56–72; RESP 16–20; TEMP 97.7–98.3; O2SAT 89–98
[2016-08-19] MEDS: LEVOTHYROXINE SODIUM 125 MCG TAB PO SCH (06:06)
[2016-08-19 08:02] LABS: BICARBONATE 26.4 MEQ/L (21.0-32.0); MAGNESIUM 2.6 MG/DL (1.5-2.5); POTASSIUM 3.8 MEQ/L (3.5-5.1)
[2016-08-19] MEDS: CARVEDILOL 12.5 MG TAB PO SCH ×2 (08:22→21:18)
[2016-08-19] MEDS: LOSARTAN 50 MG TAB PO SCH (08:22)
[2016-08-19] MEDS: SODIUM CHLORIDE 0.9% FLUSH 10 ML FLUSH IV FLUSH SCH ×2 (08:22→21:00)
[2016-08-19] MEDS: ENOXAPARIN SODIUM 40 MG/0.4 ML SYRINGE SQ SCH (11:40)
--- NOTE | 2016-08-19 13:39 | HHI.PR ---
Subjective Remarks Patient sitting on the chair resting comfortably on 3 need liters nasal cannula today No chest pain or short of breath Awaiting cardiology input on nonsustained V. tach BNP decreased to 249, creatinine decreased to 1.47 Objective Vitals Vital Signs Date Time Temp Pulse Resp B/P Pulse Ox O2 Delivery O2 Flow Rate FiO2 08/19/16 12:00 97.8 56 20 96/51 96 08/19/16 08:00 97.7 58 20 106/55 97 08/19/16 03:55 98.3 63 16 93/50 98 08/18/16 21:10 98.4 66 16 101/55 93 08/18/16 16:00 98.0 65 20 100/56 96 08/18/16 16:00 98.0 65 20 100/56 96 I/O 08/18/16 08/18/16 08/18/16 08/19/16 08/19/16 08/19/16 07:00 15:00 23:00 07:00 15:00 23:00 Intake Total 0 ml 360 ml 480 ml 0 ml Output Total 500 ml 500 ml 175 ml 300 ml Balance -500 ml -140 ml 305 ml -300 ml Intake Oral 0 ml 360 ml 480 ml 0 ml Output Urine Total 500 ml 500 ml 175 ml 300 ml # Bowel Movements 0 1 1 0 Result Diagram: 08/17/16 0341 08/19/16 0633 Objective Remarks GENERAL: This is a well-nourished, well-developed patient, in no apparent distress. CARDIOVASCULAR: Regular rate and rhythm without murmurs, gallops, or rubs. RESPIRATORY: Right basilar coarse crackles. No wheezes, rales, or rhonchi. GASTROINTESTINAL: Abdomen soft, non-tender, nondistended. Normal active bowel sounds MUSCULOSKELETAL: Extremities without clubbing, cyanosis, or edema. NEURO: Alert & Oriented x4 to person, place, time, situation. Moves all ext x4 A/P Problem List: (1) Acute respiratory distress ICD Code: R06.00 Status: Acute (2) Elevated brain natriuretic peptide (BNP) level ICD Code: R79.89 Status: Acute (3) HTN (hypertension) ICD Code: I10 Status: Chronic (4) Hypothyroid ICD Code: E03.9 Status: Chronic Assessment and Plan Acute respiratory distress mostly due to CHF with elevated BNP Advanced CHF EF 30 35%, ischemic versus dilated cardiomyopathy 9 beats of V. tach mostly due to cardiomyopathy JESSICA mostly due to CHF Hypertension Hypothyroidism DVT prophylaxis Plan: Continue close monitoring of BMP and BNP, correct electrolyte disturbance Discussed with our neurology Dr. michelle patient will be going to heart catheter today, if negative then patient to have a LifeVest and follow up as an outpatient for possible ICD placement if heart function does not improve Will continue with iv fluid around heart catheter time due to worsening creatinine Continue on hypertensive medication DVT prophylaxis with Lovenox Karey Becerra MD Aug 19, 2016 13:39
--- NOTE | 2016-08-19 14:08 | PD.CARD.PN ---
Subjective Subjective Remarks No CP or SOB, no dizziness, episodes of NSVT Objective Medications Current Medications Medications (Trade) Dose Ordered Sig/Sally Route Start Time Stop Time Status Last Admin (NS Flush) 2 ml UNSCH PRN IVF 08/16/16 10:00 (NS Flush) 2 ml UNSCH PRN IV FLUSH 08/16/16 11:45 (NS Flush) 2 ml BID IV FLUSH 08/16/16 21:00 08/19/16 08:22 (Tylenol) 650 mg Q4H PRN PO 08/16/16 11:45 (Zofran Inj) 4 mg Q6H PRN IVP 08/16/16 11:45 (Lovenox Inj) 40 mg Q24H SQ 08/16/16 11:45 08/19/16 11:40 (Narcan Inj) 0.4 mg UNSCH PRN IV 08/16/16 11:45 (Synthroid) 125 mcg DAILY@0600 PO 08/17/16 06:00 08/19/16 06:06 (Cozaar) 100 mg DAILY PO 08/17/16 09:00 08/19/16 08:22 (Desyrel) 50 mg HS PO 08/17/16 21:00 08/18/16 20:33 (Coreg) 12.5 mg Q12HR PO 08/18/16 09:00 08/19/16 08:22 Vital Signs / I&O Vital Signs Date Time Temp Pulse Resp B/P Pulse Ox O2 Delivery O2 Flow Rate FiO2 08/19/16 12:00 97.8 56 20 96/51 96 08/19/16 08:00 97.7 58 20 106/55 97 08/19/16 03:55 98.3 63 16 93/50 98 08/18/16 21:10 98.4 66 16 101/55 93 08/18/16 16:00 98.0 65 20 100/56 96 08/18/16 16:00 98.0 65 20 100/56 96 I/O 08/18/16 08/18/16 08/18/16 08/19/16 08/19/16 08/19/16 07:00 15:00 23:00 07:00 15:00 23:00 Intake Total 0 ml 360 ml 480 ml 0 ml Output Total 500 ml 500 ml 175 ml 300 ml Balance -500 ml -140 ml 305 ml -300 ml Intake Oral 0 ml 360 ml 480 ml 0 ml Output Urine Total 500 ml 500 ml 175 ml 300 ml # Bowel Movements 0 1 1 0 Physical Exam GENERAL: IN NAD SKIN: Warm and dry. HEAD: Normocephalic. EYES: No scleral icterus. No injection or drainage. NECK: Supple, trachea midline. No JVD or lymphadenopathy. CARDIOVASCULAR: Regular rate and rhythm without murmurs, gallops, or rubs. RESPIRATORY: Breath sounds equal bilaterally. No accessory muscle use. GASTROINTESTINAL: Abdomen soft, non-tender, nondistended. MUSCULOSKELETAL: No cyanosis, or edema. Laboratory Laboratory Tests Test 08/18/16 08/19/16 20:19 06:33 Sodium Level 141 MEQ/L 139 MEQ/L Potassium Level 3.8 MEQ/L 3.8 MEQ/L Chloride Level 106 MEQ/L 106 MEQ/L Carbon Dioxide Level 27.1 MEQ/L 26.4 MEQ/L Anion Gap 8 MEQ/L 7 MEQ/L Blood Urea Nitrogen 29 MG/DL 27 MG/DL Creatinine 1.59 MG/DL 1.47 MG/DL Estimat Glomerular Filtration 42 ML/MIN 46 ML/MIN Rate Random Glucose 114 MG/DL 111 MG/DL Calcium Level 8.5 MG/DL 8.5 MG/DL Magnesium Level 2.6 MG/DL B-Type Natriuretic Peptide 249 PG/ML Imaging Last Impressions Chest X-Ray 08/16/16 0956 Signed Impressions: Service Date/Time: Tuesday, August 16, 2016 10:14 - CONCLUSION: Cardiomegaly Lauro Barksdale MD Assessment and Plan Problem List: (1) CHF (congestive heart failure) (2) Cardiomyopathy (3) HTN (hypertension) (4) Hypothyroid (5) LBBB (left bundle branch block) Assessment and Plan Tele w NSVT. Continue losartan and carvedilol. BP control, now low, but asymptomatic. Cath/PCI if necessary today. Prehydrate and monitor renal fx. D/w pt and . Problem Qualifiers (1) CHF (congestive heart failure): Qualified Code: I50.9 - Acute congestive heart failure, unspecified congestive heart failure type Muriel So MD Aug 19, 2016 14:08
[2016-08-19] MEDS: SODIUM CHLOR 0.9% 1000 ML INJ 1,000 ML IV SCH ×2 (15:07→21:10)
[2016-08-19] MEDS ORDERED: HEPARIN-NS/PF INJ 500 ML ONE (17:05)
[2016-08-19] MEDS ORDERED: MIDAZOLAM HCL 5 MG/5 ML VIAL ONE (17:05)
[2016-08-19] MEDS ORDERED: HEPARIN SODIUM - IV 10,000 UNITS/10 ML VIAL ONE (17:30)
[2016-08-19 18:53] LABS: HDL CHOLESTEROL 49.2 MG/DL (40.0-60.0)
[2016-08-19] MEDS: traZODone HCL 50 MG TAB PO SCH (21:18)
[2016-08-20] VITALS (18 sets, daily range): BP systolic 107–140; BP diastolic 57–77; PULSE 58–74; RESP 18; TEMP 98–98.4; O2SAT 90–97
[2016-08-20] MEDS: SODIUM CHLOR 0.9% 1000 ML INJ 1,000 ML IV SCH ×3 (03:50→14:21)
[2016-08-20] MEDS: LEVOTHYROXINE SODIUM 125 MCG TAB PO SCH (05:30)
[2016-08-20 06:43] LABS: BICARBONATE 26.7 MEQ/L (21.0-32.0); POTASSIUM 3.9 MEQ/L (3.5-5.1)
[2016-08-20] MEDS: SODIUM CHLORIDE 0.9% FLUSH 10 ML FLUSH IV FLUSH SCH (09:00)
[2016-08-20] MEDS: CARVEDILOL 12.5 MG TAB PO SCH (09:05)
[2016-08-20] MEDS: LOSARTAN 50 MG TAB PO SCH (09:06)
[2016-08-20] MEDS ORDERED: ASPI1TAB69 PO (09:43)
[2016-08-20] MEDS ORDERED: CARV12.5 PO (09:43)
--- NOTE | 2016-08-20 10:14 | HHI.DS ---
Discharge Summary Admission Date Aug 16, 2016 at 11:39 Discharge Date: Aug 20, 2016 Admitting Diagnosis CHF, ACS (1) Acute respiratory distress ICD Code: R06.00 (2) Elevated brain natriuretic peptide (BNP) level ICD Code: R79.89 (3) HTN (hypertension) ICD Code: I10 (4) Hypothyroid ICD Code: E03.9 Procedures Left heart catheter Brief History - From Admission Mr. Damon is an 80 year old male. This morning he awoke with respiratory distress. He came into the ER for an evaluation. Findings might suggest CHF, though he has not history of CHF. BNP is elevated. He reports that he has HTN at baseline, but no other conditions. Alternate causes of is fluid excess and acute dyspnea could be an allergic reaction, a viral manifestation, or flash pulmonary edema. He has no history of flash pulmonary edema. He has no other viral symptoms. He did eat oysters the preceding night and does not typically go out or consume sea food. His reports that he may have had symptoms of increased, but mild dyspnea with exertion in the past month. No other complaints. no chest pain. No distress when seen. CBC/BMP: 08/17/16 0341 08/20/16 0545 Significant Findings Laboratory Tests Test 08/18/16 08/19/16 08/20/16 20:19 06:33 05:45 Blood Urea Nitrogen 29 MG/DL (7-18) 27 MG/DL (7-18) 24 MG/DL (7-18) Creatinine 1.59 MG/DL 1.47 MG/DL 1.33 MG/DL (0.60-1.30) (0.60-1.30) (0.60-1.30) Estimat Glomerular Filtration 42 ML/MIN (>89) 46 ML/MIN (>89) 52 ML/MIN (>89) Rate Random Glucose 114 MG/DL 111 MG/DL 125 MG/DL (74-106) (74-106) (74-106) Magnesium Level 2.6 MG/DL (1.5-2.5) B-Type Natriuretic Peptide 249 PG/ML (0-100) Calcium Level 8.3 MG/DL (8.5-10.1) PE at Discharge GENERAL: This is a well-nourished, well-developed patient, in no apparent distress. CARDIOVASCULAR: Regular rate and rhythm without murmurs, gallops, or rubs. RESPIRATORY: Right basilar coarse crackles. No wheezes, rales, or rhonchi. GASTROINTESTINAL: Abdomen soft, non-tender, nondistended. Normal active bowel sounds MUSCULOSKELETAL: Extremities without clubbing, cyanosis, or edema. NEURO: Alert & Oriented x4 to person, place, time, situation. Moves all ext x4 Hospital Course 80 years old male admitted with acute respiratory distress due to CHF and elevated BNP 2-D echo showed EF 30-35% ischemic versus dilated cardiomyopathy, cardiology consulted plan was to discharge and follow up as an outpatient however patient started to develop nonsustained V. tach, I discussed again with cardiology and patient went for heart catheter, cardiology notified me that the heart catheter is not majorly significant for repairable blockage so the plan was to apply LifeVest and follow up within 2-[address] michelle possible ICD placement if heart function did not improve. While in hospital patient creatinine increase so iv fluid around heart catheter has been given creatinine started to trending down however diuretic did not started at discharge due to this. Patient to see Dr. michelle within 1-2 days we ordered BMP to be done at that time so he can be started on diuretic by cardiology when kidney function improved. Patient to continue on losartan and Coreg, I will hold on initiating low dose aspirin due to patient mentioned seeing some blood in the urine and feeling that he passes a stone. I discussed with Dr. michelle patient to see urologist as an outpatient. 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 Pt Condition on Discharge: Fair Discharge Disposition: Discharge Home Discharge Time: > 30 minutes Discharge Instructions DIET: Follow Instructions for: Heart Healthy Diet Activities you can perform: Weight Bearing as Jaclyn Other Activity Instructions: avoid swiming , operating heavy machine , driving Follow up Referrals: Cardiology - 2-3 Days with Muriel So MD New Medications: Aspirin (Aspirin) 81 Mg Tabdr 81 MG PO DAILY cadproph #30 TAB Carvedilol (Coreg) 12.5 Mg Tab 12.5 MG PO Q12HR htn #60 TAB Continued Medications: Levothyroxine (Levothyroxine) 125 Mcg Tab 125 MCG PO DAILY Thyroid #30 Ref 0 TAB Losartan (Losartan) 100 Mg Tab 100 MG PO DAILY Blood Pressure Management #30 Ref 0 TAB Karey Becerra MD Aug 20, 2016 10:14
[2016-08-20] MEDS: ENOXAPARIN SODIUM 40 MG/0.4 ML SYRINGE SQ SCH (10:15)
--- NOTE | 2016-08-20 10:15 | HHI.PR ---
Subjective Remarks Patient stated he felt that he passed the stone and so some blood in the urine, the nurse wasn't sure about this, patient told me he had kidney stone passed about 10 years ago and he think it's similar feeling. We'll monitor that however I notified patient he may need to see a urologist as an outpatient. No chest pain or short of breath no more palpitation Discussed with cardiology, left heart catheter initial verbal report not majorly significant, plan for LifeVest and follow up as an outpatient Objective Vitals Vital Signs Date Time Temp Pulse Resp B/P Pulse Ox O2 Delivery O2 Flow Rate FiO2 08/20/16 08:00 60 08/20/16 08:00 98.2 64 18 107/57 97 08/20/16 06:00 74 08/20/16 05:00 65 08/20/16 04:00 66 08/20/16 03:20 98.0 58 18 140/77 90 08/20/16 03:00 58 08/20/16 02:00 63 08/20/16 01:00 62 08/20/16 00:00 66 08/19/16 23:00 98.2 66 18 117/60 95 08/19/16 23:00 65 08/19/16 22:00 72 08/19/16 21:00 65 08/19/16 20:00 66 08/19/16 19:00 68 08/19/16 19:00 97.9 68 20 126/65 94 08/19/16 18:45 98.0 68 18 127/73 89 Manual Cuff/Palpation 08/19/16 12:00 97.8 56 20 96/51 96 I/O 08/19/16 08/19/16 08/19/16 08/20/16 08/20/16 08/20/16 07:00 15:00 23:00 07:00 15:00 23:00 Intake Total 0 ml 720 ml Output Total 300 ml 700 ml Balance -300 ml 20 ml Intake Oral 0 ml 720 ml Output Urine Total 300 ml 700 ml # Bowel Movements 0 0 Result Diagram: 08/17/16 0341 08/20/16 0545 Objective Remarks GENERAL: This is a well-nourished, well-developed patient, in no apparent distress. CARDIOVASCULAR: Regular rate and rhythm without murmurs, gallops, or rubs. RESPIRATORY: Right basilar coarse crackles. No wheezes, rales, or rhonchi. GASTROINTESTINAL: Abdomen soft, non-tender, nondistended. Normal active bowel sounds MUSCULOSKELETAL: Extremities without clubbing, cyanosis, or edema. NEURO: Alert & Oriented x4 to person, place, time, situation. 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 tach mostly due to cardiomyopathy JESSICA mostly due to CHF Hypertension Hypothyroidism DVT prophylaxis Plan: Continue close monitoring of BMP and BNP, correct electrolyte disturbance Discussed with our neurology Dr. michelle patient will be going to heart catheter today, if negative then patient to have a LifeVest and follow up as an outpatient for possible ICD placement if heart function does not improve Will continue with iv fluid around heart catheter time due to worsening creatinine Continue on hypertensive medication DVT prophylaxis with Karey Winslow MD Aug 20, 2016 10:15
--- NOTE | 2016-08-20 12:09 | PD.CARD.PN ---
Subjective Subjective Remarks No CP or SOB, ambulating without difficulties Objective Medications Current Medications Medications (Trade) Dose Ordered Sig/Sally Route Start Time Stop Time Status Last Admin (NS Flush) 2 ml UNSCH PRN IVF 08/16/16 10:00 (NS Flush) 2 ml UNSCH PRN IV FLUSH 08/16/16 11:45 (NS Flush) 2 ml BID IV FLUSH 08/16/16 21:00 08/20/16 09:00 (Tylenol) 650 mg Q4H PRN PO 08/16/16 11:45 (Zofran Inj) 4 mg Q6H PRN IVP 08/16/16 11:45 (Lovenox Inj) 40 mg Q24H SQ 08/16/16 11:45 08/19/16 11:40 (Narcan Inj) 0.4 mg UNSCH PRN IV 08/16/16 11:45 (Synthroid) 125 mcg DAILY@0600 PO 08/17/16 06:00 08/20/16 05:30 (Cozaar) 100 mg DAILY PO 08/17/16 09:00 08/20/16 09:06 (Desyrel) 50 mg HS PO 08/17/16 21:00 08/19/16 21:18 Carvedilol 12.5 mg 12.5 mg Q12HR PO 08/18/16 09:00 08/20/16 09:05 (NS 1000 ml Inj) 1,000 ml @ 150 mls/hr Q6H40M IV 08/19/16 14:30 08/19/16 15:07 Vital Signs / I&O Vital Signs Date Time Temp Pulse Resp B/P Pulse Ox O2 Delivery O2 Flow Rate FiO2 08/20/16 11:00 62 08/20/16 10:00 64 08/20/16 09:00 66 08/20/16 08:00 60 08/20/16 08:00 98.2 64 18 107/57 97 08/20/16 07:00 60 08/20/16 06:00 74 08/20/16 05:00 65 08/20/16 04:00 66 08/20/16 03:20 98.0 58 18 140/77 90 08/20/16 03:00 58 08/20/16 02:00 63 08/20/16 01:00 62 08/20/16 00:00 66 08/19/16 23:00 98.2 66 18 117/60 95 08/19/16 23:00 65 08/19/16 22:00 72 08/19/16 21:00 65 08/19/16 20:00 66 08/19/16 19:00 68 08/19/16 19:00 97.9 68 20 126/65 94 08/19/16 18:45 98.0 68 18 127/73 89 Manual Cuff/Palpation I/O 08/19/16 08/19/16 08/19/16 08/20/16 08/20/16 08/20/16 07:00 15:00 23:00 07:00 15:00 23:00 Intake Total 0 ml 720 ml Output Total 300 ml 700 ml Balance -300 ml 20 ml Intake Oral 0 ml 720 ml Output Urine Total 300 ml 700 ml # Bowel Movements 0 0 Physical Exam GENERAL: IN NAD SKIN: Warm and dry. HEAD: Normocephalic. EYES: No scleral icterus. No injection or drainage. NECK: Supple, trachea midline. No JVD or lymphadenopathy. CARDIOVASCULAR: Regular rate and rhythm without murmurs, gallops, or rubs. RESPIRATORY: Breath sounds equal bilaterally. No accessory muscle use. GASTROINTESTINAL: Abdomen soft, non-tender, nondistended. MUSCULOSKELETAL: No cyanosis, or edema. Laboratory Laboratory Tests Test 08/20/16 05:45 Sodium Level 139 MEQ/L Potassium Level 3.9 MEQ/L Chloride Level 106 MEQ/L Carbon Dioxide Level 26.7 MEQ/L Anion Gap 6 MEQ/L Blood Urea Nitrogen 24 MG/DL Creatinine 1.33 MG/DL Estimat Glomerular Filtration 52 ML/MIN Rate Random Glucose 125 MG/DL Calcium Level 8.3 MG/DL Imaging Last Impressions Chest X-Ray 08/16/16 0956 Signed Impressions: Service Date/Time: Tuesday, August 16, 2016 10:14 - CONCLUSION: Cardiomegaly Lauro Barksdale MD Assessment and Plan Problem List: (1) CHF (congestive heart failure) (2) Cardiomyopathy (3) HTN (hypertension) (4) Hypothyroid (5) LBBB (left bundle branch block) Assessment and Plan Cath with severe LV dysfunction and single vessel CAD (diagonal branch).Tele w NSVT. Continue losartan and carvedilol. BP low normal, pt asymptomatic. Renal fx stable. Place LifeVest today. Ok to discharge home. Will schedule outpatient f/u soon after discharge. Will need f/u echo and a consideration of biV ICD if necessary at that time. Problem Qualifiers (1) CHF (congestive heart failure): Qualified Code: I50.9 - Acute congestive heart failure, unspecified congestive heart failure type Muriel So MD Aug 20, 2016 12:09
--- NOTE | 2016-08-20 14:04 | EKG ---
Date Performed: 08/20/2016 Time Performed: 06:32:54 PTAGE: 80 years EKG: Sinus rhythm Left axis deviation IV conduction defect Septal and lateral ST-T changes may be due to myocardial is chemia Compared to prior tracing no significant change Abnormal ECG PREVIOUS TRACING : 08/16/2016 09.43 DOCTOR: Yusuf Ventura Interpretating Date/Time 08/20/2016 14:00:33
--- NOTE | 2016-08-21 16:57 | MR ---
cc: MURIEL SO MD DATE: 08/19/2016. INDICATIONS FOR THE PROCEDURE: Non-ST elevation myocardial infarction, class III angina, congestive heart failure, cardiomyopathy. PROCEDURE PERFORMED: Retrograde left and right heart catheterization with left ventriculography, selective coronary angiography and thermodilution cardiac output determination. ACCESS SITE: Right femoral artery and right femoral vein. EQUIPMENT USED: [place]-Prudencio catheter. A 5-Tongan pigtail catheter. A 5-Tongan JL5 and AR-1 coronary artery catheters. MEDICATIONS: 1. Versed IV. 2. Fentanyl IV. 3. Heparin IV. CONTRAST: Omnipaque 80 cc. COMPLICATIONS: None. ESTIMATED BLOOD LOSS: Less than 10 cc. METHOD OF HEMOSTASIS: Manual compression. RESULTS OF HEMODYNAMICS: 1. Heart rate 63 beats per minute. 2. Mean pulmonary capillary wedge pressure 24 mmHg. 3. Pulmonary artery 44/17/31. 4. Right ventricle 44/9. 5. Right atrium 11. 6. Left ventricle 95/18. 7. Aorta 95/45/62. CARDIAC OUTPUT: 4 liters per minute by thermodilution. LEFT VENTRICULOGRAPHY: Ejection fraction 20% with severe left ventricular enlargement. No mitral regurgitation. CORONARY ANGIOGRAPHY: Left main coronary artery patent. Left anterior descending artery patent. First diagonal artery has 80% proximal stenosis. Left circumflex artery is patent. OM-1 is patent. Ramus intermedius patent. Right coronary artery patent. Posterior descending artery patent. PLV patent. DIAGNOSIS: 1. Dilated cardiomyopathy with severe left ventricular systolic dysfunction. 2. 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 3. Mild pulmonary hypertension. DISPOSITION: Mr. Damon was found to have evidence of single vessel coronary artery disease which certainly is not the cause of his cardiomyopathy. His study is consistent with severe nonischemic cardiomyopathy. We will continue therapy for congestive heart failure including CURRY / ARB and beta velasquez. We will place a Life Vest at this time and I will see him back for followup in our office before he leaves for [facility]. If his left ventricular function does not improve with medical therapy, he will need placement of a biventricular dual-chamber implantable defibrillator after at least 3 months of medical therapy. Muriel So MD OQ/ROMÁN /6:07 PM /4:44 PM SONJA
== END 2016-08-20 17:15 | disposition home or self-care (01) | DRG 281 ==
LOC: NEPE 09:29 → NEDA 11:39 → N04A 16:58 → HCIS 08-19 18:04
PROVIDERS: ADMIT Hospitalist; ATTEND Hospitalist
PROC: B211YZZ Fluoroscopy of Multiple Coronary Arteries using Other Contrast (ICD-10-PCS; 2016-08-19)
PROC: B215YZZ Fluoroscopy of Left Heart using Other Contrast (ICD-10-PCS; 2016-08-19)
PROC: 02HQ32Z Insertion of Monitoring Device into Right Pulmonary Artery, Percutaneous Approach (ICD-10-PCS; 2016-08-19)
PROC: 4A1239Z Monitoring of Cardiac Output, Percutaneous Approach (ICD-10-PCS; 2016-08-19)
PROC: 4A023N8 Measurement of Cardiac Sampling and Pressure, Bilateral, Percutaneous Approach (ICD-10-PCS; principal; 2016-08-19 16:00)
DX: I11.0 Hypertensive heart disease with heart failure (principal); I21.4 Non-ST elevation (NSTEMI) myocardial infarction; I47.2 Ventricular tachycardia; N17.9 Acute kidney failure, unspecified; I27.2 Other secondary pulmonary hypertension; I42.0 Dilated cardiomyopathy; I44.7 Left bundle-branch block, unspecified; I50.31 Acute diastolic (congestive) heart failure; I25.10 Atherosclerotic heart disease of native coronary artery without angina pectoris; E03.9 Hypothyroidism, unspecified; Z23 Encounter for immunization
CPT/HCPCS: 71020; 80048; 80053; 80061; 82810; 83735; 83880; 84484; 85002; 85025; 85610; 85730; 90471; 90732; 93005; 93306; 93460; 99285; C1769; C1893; G0009; J1644; J1650; J1940; J2250; J3010; J7030

== ENCOUNTER → 2016-08-26 | Outpatient (CLI) | payer MEDICARE, OTHER ==
[~2016-08-26] MED LIST changes: +ASPI1TAB69 PO; +CARV12.5 PO; +DOXA1TAB43 PO; +HYDR12.56 PO; +LEVO125T4 PO; +LOSA100T PO
[2016-08-26 14:37] LABS: BICARBONATE 25.8 MEQ/L (21.0-32.0); POTASSIUM 4.4 MEQ/L (3.5-5.1)
== END ==
LOC: CLAB 13:53
PROVIDERS: ATTEND Internal Medicine Interventional Cardiology
DX: R60.9 Edema, unspecified (principal)
CPT/HCPCS: 36415; 80048

== ENCOUNTER → 2016-08-31 | Outpatient (CLI) | payer MEDICARE, OTHER ==
[2016-08-31 15:18] LABS: BICARBONATE 28.5 MEQ/L (21.0-32.0); POTASSIUM 5.4 MEQ/L (3.5-5.1)
== END ==
LOC: CLAB 14:35
PROVIDERS: ATTEND Internal Medicine Interventional Cardiology
DX: I50.9 Heart failure, unspecified (principal)
CPT/HCPCS: 36415; 80048

== ENCOUNTER → 2016-09-08 | Outpatient (CLI) | payer MEDICARE, OTHER ==
[2016-09-08 15:56] LABS: BICARBONATE 25.5 MEQ/L (21.0-32.0); POTASSIUM 4.6 MEQ/L (3.5-5.1)
== END ==
LOC: CLAB 15:02
PROVIDERS: ATTEND Internal Medicine Interventional Cardiology
DX: I50.9 Heart failure, unspecified (principal)
CPT/HCPCS: 36415; 80048

== ENCOUNTER 2016-12-01 10:33 | Day surgery (SDC) | payer MEDICARE, OTHER ==
[2016-12-01] VITALS (10 sets, daily range): BP systolic 106–120; BP diastolic 52–70; PULSE 58–66; RESP 16–18; TEMP 97.6–98.5; O2SAT 96–98
[~2016-12-01] VITALS: Ht 172.7 cm; Wt 96.7 kg
[2016-12-01] MEDS ORDERED: AMLO5TAB2 PO (11:11)
[2016-12-01] MEDS ORDERED: SPIR25TA PO (11:11)
[2016-12-01] MEDS ORDERED: ASPI81TA11 PO (11:11)
[2016-12-01] MEDS ORDERED: FURO20TA PO (11:11)
[2016-12-01] MEDS ORDERED: VANCOMYCIN 1000 MG/NS 250 ML IV SCH ×2 (11:15)
[2016-12-01] MEDS ORDERED: Hold AM Insulin & AM Hypoglycemic medications in diabetic patients PRN (11:15)
[2016-12-01] MEDS ORDERED: SODIUM CHLORID 0.9% 500 ML IV PRN (11:15)
[2016-12-01] MEDS ORDERED: POVIDONE IODINE 5% (ANTISEPSIS KIT) 4 APPLICATIONS EACH NARE PRN (11:15)
[2016-12-01] MEDS ORDERED: CHLORHEXIDINE GLUCONATE 2 % 1 PACK (2 CLOTHS) TOPICAL PRN (11:15)
[2016-12-01] MEDS ORDERED: METOPROLOL TARTRATE 25 MG TAB PO PRN (11:15)
[2016-12-01] MEDS ORDERED: NS 1000 ML IV SCH (11:15)
[2016-12-01] MEDS ORDERED: INSULIN HUMAN REGULAR 1,000 UNITS/10 ML VIAL SQ PRN (11:15)
[2016-12-01] MEDS ORDERED: LACTATED RINGER'S 1000 ML IV PRN (11:15)
[2016-12-01] MEDS ORDERED: POVIDONE IODINE 5% (ANTISEPSIS KIT) 4 APPLICATIONS EACH NARE SCH (11:15)
[2016-12-01] MEDS ORDERED: CHLORHEXIDINE GLUCONATE 2 % 1 PACK (2 CLOTHS) TOPICAL SCH (11:15)
[2016-12-01] MEDS ORDERED: MUPIROCIN 2% OINT 1 APPLIC/GM SYR NASAL SCH (11:15)
[2016-12-01] MEDS ORDERED: ceFAZolin 2 GM PREMIX 50 ML IV SCH (11:15)
[2016-12-01 11:21] LABS: AUTOMATED NEUTROPHIL # 4.6 TH/MM3 (1.8-7.7); BASOPHIL # 0.1 TH/MM3 (0-0.2); BASOPHIL % 1.1 % (0.0-2.0); EOSINOPHIL # 0.4 TH/MM3 (0-0.4); EOSINOPHIL % 5.5 % (0.0-4.0); HEMATOCRIT 36.9 % (39.0-51.0); HEMO FLAGS DIFF FINAL; LYMPHOCYTE # 1.6 TH/MM3 (1.0-4.8); MEAN CELL VOLUME 95.2 FL (80.0-100.0); MEAN CORPUSCULAR HEMOGLOBIN 33.6 PG (27.0-34.0); MEAN CORPUSCULAR HGB CONC 35.3 % (32.0-36.0); MONO % 11.7 % (0.0-8.0); NEUT % 60.7 % (16.0-70.0); PLATELET COUNT 207 TH/MM3 (150-450); RED BLOOD COUNT 3.87 MIL/MM3 (4.50-5.90); RED CELL DISTRIBUTION WIDTH 14.2 % (11.6-17.2); WHITE BLOOD COUNT 7.6 TH/MM3 (4.0-11.0)
[2016-12-01 11:32] LABS: APTT (PATIENT) 26.1 SEC (24.3-30.1); PROTHROMBIN TIME - PATIENT 10.8 SEC (9.8-11.6)
[2016-12-01 11:40] LABS: BICARBONATE 21.8 MEQ/L (21.0-32.0); POTASSIUM 4.5 MEQ/L (3.5-5.1)
[2016-12-01] MEDS ORDERED: PROPOFOL 200 MG/20 ML AMP IV ONE (13:05)
[2016-12-01] MEDS ORDERED: SODIUM CHLORID 0.9% 500 ML BAG IV ONE (13:05)
[2016-12-01] MEDS ORDERED: LIDOCAINE HCL 2% 50 ML VIAL ONE (13:11)
[2016-12-01] MEDS ORDERED: VANCOMYCIN 500 MG VIAL ONE (13:11)
[2016-12-01] MEDS ORDERED: HEPARIN-NS/PF INJ 500 ML ONE (13:11)
[2016-12-01] MEDS ORDERED: MIDAZOLAM HCL 2 MG/2 ML VIAL ONE (13:18)
--- NOTE | 2016-12-01 14:21 | CATHPROC ---
[employer] HIS Report Study Information Study Number Scheduled Start Study Start [id number] 12/01/2016 Dec 01 2016 12:48PM Referring Institution Admit Source Facility Department 1 Other [facility] - Quality Control Lab Tech Physician and Clinical Staff Initial Muriel Harrison Sales Promoter Trini Cheng,WALLY Other Anesthesia, VEGETABLE VENDOR Recorder Darlene Moe,MARCELLE Scrub Dalila Moses,RT(R) TECH2 Procedures Performed Procedure Cardioversion Equipment Time Booking Manager Description Size Mfg Part Number Used/Scraped 12:51 MEDLINE PACER CAN, LIMB * 2530 *[id number] Used [id number] 12:51 [employer] BLANKET,WARM AIR CCL * Used *[id number] 13:21 [employer] MEDICAL CATHETER, JSN, QUAD FR 5 Used *[id number] 13:21 [employer] MEDICAL CATHETER, JSN, QUAD FR 5 Used *[id number] [id number] 13:22 [employer] MEDICAL CATHETER, JSN, QUAD FR 5 Used *[id number] 13:21 [employer] MED[employer] SHEATH, EPS, FR7 FAST CATH FR 7 [id number] Used 13:21 [employer] MED[employer] SHEATH, EPS, FR7 FAST CATH FR 7 [id number] Used 13:21 [employer] MED[employer] SHEATH, EPS, FR7 FAST CATH FR 7 [id number] Used [facility] PAD, ELECTROSURGICAL 12:51 * [id number] *[id number] Used SURGICAL GROUNDING (BLUE) History: Allergies Allergy Reaction No Known Allergies History: Risk Factors Hypertension Previous Heart Failure Yes Yes Labs Hgb (g/dl) Hct (%) RBC (MIL/MM3) WBC (l/cumm) Platelets (thousands) 11.60-17.00 35.00-51.00 4.00-5.90 4.00-11.00 150.00-450.00 13.0 36 3.8 7.6 207 Glucose (mg/dl) BUN (mg/dl) Creatinine (mg/dl) BUN:Creatinine (1:x) 74.00-106.00 7.00-18.00 0.50-1.30 10.00-20.00 122 25 1.3 19.2 Na (meq/l) K (meq/l) 136.00-145.00 3.50-5.10 139 4.5 INR (PTT:PT) 0.90-1.10 1 CPK-MB (ng/ML) 0.50-3.60 Not Drawn Medication Medication Total Dose (Bolus/Oral) Medication Total Dosage/Unit 1% XYLOCAINE 20 mL Medications (Bolus/Oral) Medication Time Given Dosage/Unit Administered By Reason 1% XYLOCAINE 12/01/2016 1:55:18 PM 20 mL Muriel So 20 mL 1% XYLOCAINE given in lab by Muriel So in Right Groin via Subcutaneous. Medication (Drip) Medication Time Given Dosage/Unit Concentration/Unit Diluent (ml) Solution ANCEF 12/01/2016 1:09:12 PM 2 g 2 g ANCEF given in lab by Anesthesia, VEGETABLE VENDOR via Peripheral IV. Ordered by Muriel So. Reason: As per physicians verbal order. VANCOMYCIN DRIP 12/01/2016 1:09:32 PM 1 g 1 g VANCOMYCIN DRIP given in lab by Anesthesia, VEGETABLE VENDOR via Peripheral IV. Ordered by Muriel So. R rodrigo: As per physicians verbal order. Initial Case Assessment Cardiovascular HR Rhythm NIBP Chest Pain 59 sr 140/64 0 Edema Present Skin color Skin None Normal Warm Dry Circulatory - Right Pulses Dorsalis Pedis Radial 1 1 Scale (0,1,2,3,4,d) Circulatory - Left Pulses Dorsalis Pedis Radial 1 1 Scale (0,1,2,3,4,d) Circulatory - Lower Extremities Color Lower Right Color Lower Left Normal Normal Neurological State Oriented to time-place- Alert Moves all extremities person Comment: levelock Respiration - General Respiration Rate SpO2 (%) (B/min) 21 99 Chronological Log Time Study Chronological Log 13:02:40 Patient arrived via Bed. 13:02:40 Patient Name, D.O.B, / Armband Verified By R.N. 13:02:41 Consent signed by the physician and the patient and verified by the Quality Control Lab Tech staff. 13:02:41 Pre-op and post- op instructions given; patient acknowledges understanding of instructions. 13:02:42 Verbal Stimulation=2 Physical Stimulation=2 Airway=2 Respiration=2 TOTAL=8. (0=absent, 1=li mited, 2=present) 13:02:42 Presedation assessment performed by Quality Control Lab Tech RN. 13:02:43 Immediate Presedation assesment performed by physician. 13:02:44 Patient has been NPO for More than 6Hrs. 13:02:44 Skin Breakdown- none per pt 13:02:46 Patient Warmer Placed on the Table. 13:02:47 Disposable Defibrillator Pads Placed On Patient. 13:02:47 Drake Prominences Protected 13:02:48 A # 20 IV was noted in the Forearm (left). Grade = 0 0.9ns kvo 13:02:49 A # 20 IV was noted in the Forearm (right). Grade = 0 0.9ns kvo 13:02:49 History and physical on the chart or being dictated. 13:05:58 Anesthesia at bedside. Assumes care of patient. Marc Assessment: Initial Case, HR=59 BPM, Rhythm=sr, UULD=421/64 mmhg, Chest Pain=0, Edema=None, Col or=Normal, Skin = Warm, Dry Right Pulses: Kyree Ped=1, Radial=1 Left Pulses: Kyree Ped=1, Radial=1 13:08:20 Lower Right Extremities: Color=Normal Lower Left Extremities: Color=Normal Neurological: State=Alert, Ox3, ROBERT, Comment=levelock Respiration: Resp=21 B/min, SpO2=99 % 2 g ANCEF given in lab by Anesthesia, VEGETABLE VENDOR via Peripheral IV. Ordered by Muriel So. Reaso n: As per physicians 13:09:12 verbal order. 1 g VANCOMYCIN DRIP given in lab by Anesthesia, VEGETABLE VENDOR via Peripheral IV. Ordered by Erica So. Reason: As 13:09:32 per physicians verbal order. 13:16:58 Table restraints applied according to hospital policy 13:17:04 2% CHLORHEXIDINE GLUCONATE WASH AND NASAL SWIPE DONE PRIOR TO PROCEDURE. 13:17:09 Bovie ground pad applied to: right thigh 13:17:31 Bilateral groins prepped with 2% chlorhexidine, and with a 3 min. waiting time. 13:28:56 Reference ECG taken 13:38:00 MD paged 13:46:32 MD arrived. Time Out. Correct patient, procedure, procedure equipment, site and side verified with physicia n present. Time 13:54:01 concurred by MD, individual staff and VEGETABLE VENDOR. Time Out #2 - Consents verified, patient in correct position, all results are labled and displa yed, safety precautions 13:54:29 taken, antibiotics administered. Time out concurred by MD, individual staff and VEGETABLE VENDOR in procedu re 13:54:56 Case Start 13:55:18 20 mL 1% XYLOCAINE given in lab by Muriel So in Right Groin via Subcutaneous. 13:57:20 Vascular access was obtained in the Fem Vein (right). 13:57:24 Vascular access was obtained in the Fem Vein (right). 13:57:32 Vascular access was obtained in the Fem Vein (right). 13:57:36 A SHEATH, EPS, FR7 FAST CATH FR 7 was advanced into the Fem Vein (right) using the Modified Seldinger technique. 13:57:47 A SHEATH, EPS, FR7 FAST CATH FR 7 was advanced into the Fem Vein (right) using the Modified Seldinger technique. 13:57:51 A SHEATH, EPS, FR7 FAST CATH FR 7 was advanced into the Fem Vein (right) using the Modified Seldinger technique. A CATHETER, JSN, QUAD FR 5 was advanced vis Fem Vein (right) and placed in the CS. Placement wa s visually 13:59:11 confirmed under fluoroscopy. A CATHETER, JSN, QUAD FR 5 was advanced vis Fem Vein (right) and placed in the RVA. Placement w as visually 14:11:09 confirmed under fluoroscopy. A CATHETER, JSN, QUAD FR 5 was advanced vis Fem Vein (right) and placed in the HRA. Placement w as visually 14:11:20 confirmed under fluoroscopy. 14:13:01 EPS in progress. 14:16:02 EPS complete. 14:17:53 Cine recording checked. 14:18:18 ECG rhythm of VF noted. Patient cardioverted at 200 joules. Success 14:19:07 EP Procedure was performed. 14:19:25 2 Quads, except CS, removed without difficulty 14:20:00 Sheath(s) left in place, will be removed in Holding Area 14:20:32 Case End 14:20:38 NOTE: This patient is undergoing an additional procedure while still in the Cardiac Cath L ab. End Study - Contrast Media Used In Study Contrast Total Opened (mL) Total Used (mL) Total Wasted (mL) Unspecified 0 0 0 End Study - Maximum Contrast Load Max Contrast Load (mL) 362.2 End Study - Radiation Exposure Fluoro Time (minutes) 8.2 End Study - Patient Disposition Complications Transferred To Interventional Outcome No Quality Control Lab Tech Holding successful
--- NOTE | 2016-12-01 16:51 | CATHPROC ---
[employer] HIS Report Study Information Study Number Scheduled Start Study Start [id number] 12/01/2016 Dec 01 2016 2:22PM Referring Institution Admit Source Facility Department 1 Other [facility] - Fisheries Inspector Physician and Clinical Staff Initial Muriel Harrison Cafe Assistant Khalif Rubi,RT(R) Other Anesthesia, FUR CLIPPER Recorder Darlene Moe,Dalila Matta,RT(R) TECH2 Procedures Performed Procedure Location (Site) Vessel Name Lead Insertion Venogram Coronary Sinus Other Venogram Subclav. Vein (Lft Subclavian Vein Wire insertion Subclav. Vein (Lft Subclavian Vein Equipment Time Junior Financial Analyst Description Size Mfg Part Number Used/Scraped 14:25 [employer] MED[employer] DRAPE, RAYSHIELD X-RAY 12X17 12X17 D-100 *[id number] Used 14:54 [employer] MED[employer] DRAPE, RAY[place]IELD X-RAY 12X17 12X17 D-100 *[id number] Used 94280-66 15:21 [employer] WIRE, ASAHI PROWATER 180CM 180CM Used *[id number] WIRE, BALANCE MIDDLEWEIGHT [id number] 15:52 [employer] 190CM Used 190CM *[id number] CATHETER, BIFURCATED 16:00 ANGIO-DYNAMICS FR 5 56418 Used INFUSION BENEPHIT CATHETER, FR5 SWAN ANGUS 15:45 KYLE PYLE FR 5 110F5 *[id number] Used MONITOR MPIS-502-10.0- INTRODUCER SET, 14:25 [employer]. FR 5 SC-NT-U-SST Used MICROPUNCTURE, STIFFENED *[id number] MPIS-502-10.0- INTRODUCER SET, 14:25 [employer]. FR 5 SC-NT-U-SST Used MICROPUNCTURE, STIFFENED *[id number] 534-542T *[id number] WIRE, HYDROSTEER 150CM 672710 15:44 [facility]IG/[facility] 150CM Used ANGLED GLIDE *[id number] 6661EZ 14:54 [employer] DRAPE, IOBAN 2 6661EZ 26cm x 20cm Used *[id number] 6661EZ 14:25 [employer] DRAPE, IOBAN 2 6661EZ 26cm x 20cm Used *8094660 TP-1103 14:25 [employer] SUTURE, STRIP PLUS 1/2" * Used *6144039 14:25 ROLI PACER ADHESIVE, MASTISOL 2/3CC 2/3CC 0523-48 Used 14:25 MEDLINE PACER CAN, LIMB * 2530 *[id number] Used [id number] 14:25 MEDLINE PACER PACK, PACER CUSTOM * Used *[id number] [id number] 14:25 MEDLINE PACER PEN, SKIN DUAL W/ RULER * Used *[id number] 15:40 [facility] [employer] PACER SAFE SHEATH, FR10.5, 13CM FR 10.5 CLS-1010.5 Used PROBE COVER, STERILE [id number] 14:53 [employer] MEDICAL * Used ULTRASOUND W/ GEL *[id number] PROBE COVER, STERILE NI5729 14:25 [employer] MEDICAL * Used ULTRASOUND W/ GEL *9680301 14:47 Needle Sponge Count 2 22 Used 14:47 Needle Sponge Count 30 1 Used 14:47 Needle Sponge Count 7 7 Used 16:45 Needle Sponge Count 8 8 Used 15:17 [employer] OMNIPAQUE, 300 MG, 50ML 50ML [id number] Used SUTURE, 0 ETHIBOND [CT1] (CX21D), 8pk SUTURE, 2-0 VICRYL [CT1] (MUD210K) SUTURE, 2-0 VICRYL [CT1] (WKG451M) SUTURE, 4-0 VICRYL [PS2] (HWF590F) SUTURE, 4-0 VICRYL [PS2] (IFS473H) [id number] 14:25 [employer] BLANKET,WARM AIR CCL * Used *[id number] DEFIBRILLATOR, QUADRA 16:00 [facility] VVVED-DDDRV [id number] Used ASSURA LEAD, DURATA ACTIVE FIXATION 7121Q-65 15:21 [employer] [employer] 65CM Used 7121/65 *[id number] LEAD, QUARTET QUADRIPOLAR 15:51 [facility] 86CM 1458Q-86CM Used 1458Q LEAD, TENDRIL SDX 1688TC 1688TC/46CM 15:28 [facility] [facility] 46CM Used 46CM *[id number] [facility] PAD, ELECTROSURGICAL 14:25 * E7507 *5296733 Used SURGICAL GROUNDING ORANGE 7033-4573 14:25 [employer] JOURDAN. ELECTRODE, PRO-PADZ BIPHASIC * Used *36983 Equipment Model, Serial, Lot Number and Expiration Data Description Model Number Serial Number Lot Number Expiration Date DEFIBRILLATOR, RHONDA TUCKER [id number] 07-24-2017 LEAD, DURATA ACTIVE FIXATION 7121q-65 [id number] 02-23-2017 7121/65 LEAD, QUARTET QUADRIPOLAR 1458q-86 [id number] 09-24-2019 1458Q LEAD, TENDRIL SDX 1688TC 46CM 1688tc [id number] 04-25-2018 History: Allergies Allergy Reaction No Known Allergies History: Risk Factors Hypertension Previous Heart Failure Yes Yes Medication Medication Total Dose (Bolus/Oral) Medication Total Dosage/Unit 2% XYLOCAINE 50 mL Medications (Bolus/Oral) Medication Time Given Dosage/Unit Administered By Reason 2% XYLOCAINE 12/01/2016 3:02:20 PM 50 mL Muriel So 50 mL 2% XYLOCAINE given in lab by Muriel So in Left upper chest via Subcutaneous. Final Case Assessment Cardiovascular HR Rhythm NIBP Chest Pain 60 paced 103/56 0 Edema Present Skin color Skin None Normal Warm Dry Circulatory - Right Pulses Dorsalis Pedis Radial 1 1 Scale (0,1,2,3,4,d) Circulatory - Left Pulses Dorsalis Pedis Radial 1 1 Scale (0,1,2,3,4,d) Circulatory - Lower Extremities Color Lower Right Color Lower Left Normal Normal Neurological State Oriented to time-place- Lethargic Moves all extremities person Respiration - General Respiration Rate SpO2 (%) O2 (lpm) (B/min) 16 96 4 Chronological Log Time Study Chronological Log 14:22:10 Initial procedure has been completed. Beginning additional procedure. 14:22:15 NOTE: This patient is undergoing an additional procedure while still in the Cardiac Cath La b. 14:22:18 2% CHLORHEXIDINE GLUCONATE WASH AND NASAL SWIPE DONE PRIOR TO PROCEDURE. 14:22:24 Anesthesia remains at bedside. Assuming care of patient. 14:22:56 Upper Chest Prepped Times Two. First Sponge And Instrument Count Done by Dalila Moses, RT(R) TECH2. 14:45:27 Hypo's: 7, Sponges: 30, Bovie/scratch: 2 Sutures: 11, Blades: 2, Instruments: 26, Syveck Patches: 0 15:00:54 ST Anthony rep present Time Out #2 - Consents verified, patient in correct position, all results are labled and displa yed, safety precautions 15:01:40 taken, antibiotics administered. Time out concurred by MD, individual staff and FUR CLIPPER in procedu re 15:02:19 Case Start 15:02:20 50 mL 2% XYLOCAINE given in lab by Muriel So in Left upper chest via Subcutaneous. 15:05:00 Surgical Incision Made. 15:05:57 A pocket was created at the L Upper Chest. 15:07:28 Reference ECG taken 15:13:59 Antibiotic saturated sponge in pocket 15:14:17 The Subclav. Vein (Lft was manually injected with 20 cc's of contrast. OMNIPAQUE, 300 MG, 5 0ML 50ML used. 15:17:00 Vascular access was obtained in the Subclav. Vein (Lft. using ultrasound and micropuncture 15:17:15 Vascular access was obtained in the Subclav. Vein (Lft. 15:17:18 Vascular access was obtained in the Subclav. Vein (Lft. 15:17:34 Wire inserted 15:17:41 Wire inserted 15:17:46 Wire inserted 15:21:24 A LEAD, DURATA ACTIVE FIXATION 7121/65 65CM was inserted and positioned in the RV. 15:25:21 Lead placement verified under fluoroscopy 15:28:26 The RV lead impedance and threshold being tested. 15:29:57 The RV lead was sutured to the fascia. 15:31:00 A LEAD, TENDRIL SDX 1688TC 46CM 46CM was inserted and positioned in the RA. 15:31:50 Lead placement verified under fluoroscopy 15:32:34 The Atrial lead impedance and threshold is being tested. 15:38:18 The Atrial lead was sutured to the fascia. 15:40:16 A WIRE, HYDROSTEER 150CM ANGLED GLIDE 150CM was inserted via Subclav. Vein (Lft. A SAFE SHEATH, FR10.5, 13CM FR 10.5 was exchanged in the Subclav. Vein (Lft. This was necessary in order for 15:40:18 catheter support. 7FR sheath was bent et needed to be replaced 15:45:48 A CATHETER, FR5 SWAN ANGUS MONITOR FR 5 was advanced over a wire. 15:47:12 The Coronary Sinus was manually injected with 10 cc's of contrast. OMNIPAQUE, 300 MG, 50ML 50ML used. 15:52:07 [place] Angus Catheter Removed 15:52:12 The previous wire was exchanged for a WIRE, BALANCE MIDDLEWEIGHT 190CM 190CM. 15:54:00 A LEAD, QUARTET QUADRIPOLAR 1458Q 86CM was inserted and positioned in the CS/LV. 15:55:08 Lead placement verified under fluoroscopy 15:55:15 The CS/LV lead impedance and threshold is being tested. 16:00:37 The CS/LV lead was sutured to the fascia. 16:00:57 A DEFIBRILLATOR, QUADRA ASSURA VVVED-DDDRV was connected and placed in the pocket. 16:05:53 Antibiotic sponge removed from the surgical pocket. 16:10:04 CS quad removed under fluoro without difficulty 16:13:13 The DFT was Success at 20 Joules, 38 Ohms lead impedance and 3.6 ms charge time. Second Sponge And Instrument Count Done by Dalila Moses, RT(R) TECH2. 16:14:43 Hypo's: 7, Sponges: 30, Bovie/scratch: 2 Sutures: 11, Blades: 2, Instruments: ~INSTRU~, Syveck Patches: 0 16:20:57 Implant Procedure was performed. 16:21:05 A Bivent ICD Implant . (Dual) 16:25:24 CICU called. Spoke to Fancy 16:25:36 Bedside Report will be given. 16:41:53 The pocket was closed. Final Sponge And Instrument Count Done by Dalila Moses, RT(R) TECH2. 16:43:26 Hypo's: 7, Sponges: 30, Bovie/scratch: 2 Sutures: 11, Blades: 2, Instruments: 26, Syveck Patches: 0 16:47:10 Steri-strips and a sterile dressing applied to site. 16:47:17 Case End Assessment: Final Case, HR=60 BPM, Rhythm=paced, JFKL=572/56 mmhg, Chest Pain=0, Edema=None, Color=Normal, Skin = Warm, Dry Right Pulses: Kyree Ped=1, Radial=1 Left Pulses: Kyree Ped=1, Radial=1 16:49:24 Lower Right Extremities: Color=Normal Lower Left Extremities: Color=Normal Neurological: State=Lethargic, Ox3, ROBERT Respiration: Resp=16 B/min, SpO2=96 %, O2=4 lpm 16:56:16 Defibrillator and ground pads removed. Skin intact. 16:56:30 Patient moved to stretcher 16:57:24 Implantable Device card placed in patient's chart. End Study - Contrast Media Used In Study Contrast Total Opened (mL) Total Used (mL) Total Wasted (mL) Omnipaque 50 20 30 End Study - Radiation Exposure Fluoro Time (minutes) 16.1 End Study - Patient Disposition Complications Transferred To Interventional Outcome No Telemetry Bed successful
[2016-12-01] MEDS ORDERED: TEMAZEPAM 15 MG CAP PO PRN (17:30)
[2016-12-01] MEDS ORDERED: ACETAMINOPHEN 325 MG TAB PO PRN (17:30)
[2016-12-01] MEDS ORDERED: ACETAMINOPHEN/CODEINE 300 MG/30 MG TAB PO PRN (17:30)
--- NOTE | 2016-12-01 18:00 | RADRPT ---
EXAM DATE/TIME: 12/01/2016 17:32 [place] COMPARISON: No previous studies available for comparison. INDICATIONS : Evaluate for pneumothorax. MEDICAL HISTORY : Hypertension. SURGICAL HISTORY : Pacemaker. ENCOUNTER: Initial ACUITY: 1 day PAIN SCORE: 0/10 LOCATION: Bilateral chest FINDINGS: A single view of the chest demonstrates pacer leads overlying right atrium, right ventricle and coron raheem sinus. Cardiomegaly. Minimal basal atelectasis. No pneumothorax. CONCLUSION: 1. No pneumothorax. Pacer leads as above. Cardiomegaly. Wade Nunes MD on December 01, 2016 at 17:59 Board Certified Radiologist. This report was verified electronically.
[2016-12-01] MEDS: CARVEDILOL 12.5 MG TAB PO SCH (21:26)
[2016-12-01] MEDS: ceFAZolin 2 GM PREMIX 50 ML IV SCH (23:51)
[2016-12-02] VITALS (14 sets, daily range): BP systolic 100–111; BP diastolic 44–56; PULSE 60–68; RESP 18–22; TEMP 97.8–98.5; O2SAT 94–96
[2016-12-02] MEDS ORDERED: VANCOMYCIN INJ 1,000 MG in SODIUM CHLOR 0.9% 250 ML INJ 250 ML IV ONE (03:00)
[2016-12-02] MEDS: ceFAZolin 2 GM PREMIX 50 ML IV SCH (05:41)
[2016-12-02] MEDS ORDERED: LEVOTHYROXINE SODIUM 125 MCG TAB PO SCH (06:00)
--- NOTE | 2016-12-02 08:39 | EKG ---
Date Performed: 12/01/2016 Time Performed: 11:14:22 PTAGE: 81 years EKG: CONSIDER ACUTE ST ELEVATION RI Sinus bradycardia. Lead(s) unsuitable for analysis: III IV conduction defect Possible anterior infarct - age undetermined Lateral ST elevation, CONSIDER ACUTE INFARCT Inferior ST-T changes suggest myocardial injury/ischemia Abnormal ECG PREVIOUS TRACING : 08/20/2016 06.32 DOCTOR: Charly Menendez Interpretating Date/Time 12/02/2016 08:33:58
[2016-12-02] MEDS: CARVEDILOL 12.5 MG TAB PO SCH (08:42)
[2016-12-02] MEDS ORDERED: ASPIRIN EC 81 MG TABEC PO SCH (09:00)
[2016-12-02] MEDS ORDERED: FUROSEMIDE 20 MG TAB PO SCH (09:00)
[2016-12-02] MEDS ORDERED: LOSARTAN 50 MG TAB PO SCH (09:00)
[2016-12-02] MEDS ORDERED: SPIRONOLACTONE 25 MG TAB PO SCH (09:00)
--- NOTE | 2016-12-02 13:01 | PD.CARD.PN ---
Subjective Subjective Remarks No CP or SOB, feels well, BP low nl, no dizziness Objective Medications Current Medications Medications (Trade) Dose Ordered Sig/Sally Route Start Time Stop Time Status Last Admin Lactated Ringer's 1,000 ml @ 30 mls/hr Q24H PRN IV 12/01/16 11:15 12/04/16 11:14 (NS 500 ml Inj) 500 ml @ 30 mls/hr [id number] PRN IV 12/01/16 11:15 12/04/16 11:14 Miscellaneous Information Hold AM Insulin & ... UNSCH PRN .XX 12/01/16 11:15 12/05/16 11:14 Sodium Chloride 1,000 ml @ 30 mls/hr Q24H IV 12/01/16 11:15 (Ancef 2 Gm Premix) 50 ml @ 100 mls/hr Q8H IV 12/01/16 22:00 12/02/16 14:29 12/02/16 05:41 (Restoril) 15 mg HS PRN PO 12/01/16 17:30 12/02/16 00:37 (Tylenol-Codeine #3) 2 tab Q4H PRN PO 12/01/16 17:30 (Tylenol) 650 mg Q4H PRN PO 12/01/16 17:30 (Ecotrin Ec) 81 mg DAILY PO 12/02/16 09:00 12/02/16 08:42 (Coreg) 12.5 mg Q12HR PO 12/01/16 21:00 12/02/16 08:42 (Lasix) 20 mg DAILY PO 12/02/16 09:00 12/02/16 08:42 (Synthroid) 125 mcg DAILY@06 PO 12/02/16 06:00 12/02/16 05:41 (Cozaar) 100 mg DAILY PO 12/02/16 09:00 (Aldactone) 25 mg DAILY PO 12/02/16 09:00 12/02/16 08:42 Vital Signs / I&O Vital Signs Date Time Temp Pulse Resp B/P Pulse Ox O2 Delivery O2 Flow Rate FiO2 12/02/16 12:09 62 12/02/16 11:36 65 12/02/16 11:36 97.8 64 18 100/55 94 12/02/16 10:33 63 12/02/16 09:08 61 12/02/16 08:35 61 12/02/16 07:18 98.1 60 18 104/44 96 12/02/16 06:00 68 12/02/16 05:00 64 12/02/16 04:00 68 12/02/16 03:00 98.5 68 22 111/56 95 12/02/16 03:00 68 12/02/16 02:00 64 12/02/16 01:00 64 12/02/16 00:00 66 12/01/16 23:00 98.5 65 18 116/62 98 12/01/16 23:00 62 12/01/16 22:00 66 12/01/16 21:00 66 12/01/16 20:00 63 12/01/16 19:00 60 12/01/16 19:00 97.9 60 18 114/63 96 12/01/16 18:35 97.7 60 16 120/70 98 12/01/16 18:22 60 12/01/16 17:45 97.7 60 16 106/52 96 12/01/16 17:30 97.7 60 18 106/52 96 I/O 12/01/16 12/01/16 12/01/16 12/02/16 12/02/16 12/02/16 07:00 15:00 23:00 07:00 15:00 23:00 Intake Total 740 ml 590 ml Output Total 250 ml 1400 ml Balance 490 ml -810 ml Intake Oral 240 ml 240 ml IV Total 500 ml 350 ml Output Urine Total 250 ml 1400 ml # Bowel Movements 0 Physical Exam GENERAL: In NAD SKIN: Warm and dry. HEAD: Normocephalic. EYES: No scleral icterus. No injection or drainage. NECK: Supple, trachea midline. No JVD or lymphadenopathy. CARDIOVASCULAR: Regular rate and rhythm without murmurs, gallops, or rubs. RESPIRATORY: Breath sounds equal bilaterally. No accessory muscle use. GASTROINTESTINAL: Abdomen soft, non-tender, nondistended. MUSCULOSKELETAL: No cyanosis, or edema. Wound stable Laboratory Current Medications Medications (Trade) Dose Ordered Sig/Sally Route Start Time Stop Time Status Last Admin Lactated Ringer's 1,000 ml @ 30 mls/hr Q24H PRN IV 12/01/16 11:15 12/04/16 11:14 (NS 500 ml Inj) 500 ml @ 30 mls/hr [id number] PRN IV 12/01/16 11:15 12/04/16 11:14 Miscellaneous Information Hold AM Insulin & ... UNSCH PRN .XX 12/01/16 11:15 12/05/16 11:14 Sodium Chloride 1,000 ml @ 30 mls/hr Q24H IV 12/01/16 11:15 (Ancef 2 Gm Premix) 50 ml @ 100 mls/hr Q8H IV 12/01/16 22:00 12/02/16 14:29 12/02/16 05:41 (Restoril) 15 mg HS PRN PO 12/01/16 17:30 12/02/16 00:37 (Tylenol-Codeine #3) 2 tab Q4H PRN PO 12/01/16 17:30 (Tylenol) 650 mg Q4H PRN PO 12/01/16 17:30 (Ecotrin Ec) 81 mg DAILY PO 12/02/16 09:00 12/02/16 08:42 (Coreg) 12.5 mg Q12HR PO 12/01/16 21:00 12/02/16 08:42 (Lasix) 20 mg DAILY PO 12/02/16 09:00 12/02/16 08:42 (Synthroid) 125 mcg DAILY@06 PO 12/02/16 06:00 12/02/16 05:41 (Cozaar) 100 mg DAILY PO 12/02/16 09:00 (Aldactone) 25 mg DAILY PO 12/02/16 09:00 12/02/16 08:42 Imaging Last Impressions Chest X-Ray 12/01/16 0000 Signed Impressions: Service Date/Time: Thursday, December 01, 2016 17:32 - CONCLUSION: 1. No pneumothorax. Pacer leads as above. Cardiomegaly. Wade Nunes MD Assessment and Plan Problem List: (1) CHF (congestive heart failure) (2) Cardiomyopathy (3) LBBB (left bundle branch block) (4) HTN (hypertension) (5) ICD (implantable cardioverter-defibrillator) in place Assessment and Plan Wound stable. Normal ICD fx. DC home. Discontinue amlodipine, cut losartan and carvedilol doses in half. F/u w me within 2 w. Muriel So MD Dec 02, 2016 13:01
--- NOTE | 2016-12-03 19:16 | MR ---
cc: MURIEL SO MD DATE: 12/01/2016. INDICATIONS FOR THE PROCEDURE: Ischemic cardiomyopathy, ejection fraction 30%, left bundle-branch block. PROCEDURE PERFORMED: 1. Comprehensive electrophysiology study right atrial and right ventricle pacing and sensing. 2. Coronary sinus cannulation with coronary sinus pacing and sensing. ACCESS SITE: Right femoral vein using ultrasound guidance EQUIPMENT USED: Quadripolar catheter x3. MEDICATIONS: Sedation provided by anesthesia. COMPLICATIONS: None. ESTIMATED BLOOD LOSS: Less than 10 mL. METHOD OF HEMOSTASIS: Sheath and coronary sinus catheter left in place. RESULTS 1. A baseline EKG normal showed normal sinus rhythm with left bundle-branch block. 2. Baseline intervals (milliseconds): RR 1082, AK 188, QRS 192, Q-T 509, Q-T-C 485, AH 68, HV 94. CORONARY SINUS STIMULATION: Coronary sinus stimulation was performed. No arrhythmias were induced. RIGHT ATRIAL PROGRAMMED STIMULATION: Right atrial programmed stimulation was performed. AV Wenckebach 460 milliseconds. No arrhythmias were induced. RIGHT VENTRICULAR PROGRAMMED VENTRICULAR STIMULATION: Right ventricular programmed ventricular stimulation was performed at baseline. RVRP 600/260/290. CLOSEST COUPLING INTERVALS: 600/290/200. 290/230/220 (ASSEMBLER MOLDED FRAMES/VF induced). ARRHYTHMIAS INDUCED: Polymorphic ventricular tachycardia / ventricular fibrillation induced with in right ventricular apex. The patient was cardioverted to sinus rhythm using 200 joule biphasic shock. DIAGNOSIS: 1. Polymorphic ventricular tachycardia / ventricular fibrillation inducible at baseline. 2. No inducible atrial arrhythmias. 3. Atrial interval 94 milliseconds. DISPOSITION: Mr. Damon will undergo replacement of dual-chamber biventricular defibrillator. Muriel So MD OQ/ROMÁN /2:25 PM /7:02 PM
--- NOTE | 2016-12-03 21:48 | MR ---
cc: ALMA MCKENZIE DATE 12/01/16 INDICATION Congestive heart failure, class III, ischemic cardiomyopathy diagnosed over 3 months ago, ejection fraction 30% __ study 11/26/2016, left bundle-branch block. QRS 192 milliseconds. The patient has been on maximum guideline directed medical therapy. PROCEDURE PERFORMED 1. Replacement of [employer] dual-chamber biventricular defibrillator. 2. Testing of [facility] dual-chamber biventricular defibrillator system. ACCESS SITE Left subclavian vein. EQUIPMENT USED Generator [employer] model CD 3365-40Q dual-chamber biventricular defibrillator, serial number [id number]. Right atrial lead [facility] model 1688TC-46 cm screw-in atrial lead, serial number [id number]. Right ventricle lead [facility] model 7121Q-65 cm screw-in ventricle, lead serial number [id number]. Left ventricle lead [facility] model 1458Q-86 cm coronary sinus lead, serial number of [id number]. Lead testing right atrial lead P-wave 2.1 millivolts, lead impedance 560 ohms, pacing threshold 0.75 volts at 0.5 milliseconds. Pacing at 10 volts, no diaphragmatic stimulation. Right ventricle lead R wave 4.4 millivolts, lead impedance 610 ohms, pacing threshold 0.5 volts at 0.5 milliseconds. Pacing at 10 volts, no diaphragmatic stimulation. Left ventricle lead, lead impedance 1020 ohms, pacing (D1-M2) pacing threshold 0.75 volts at 0.5 milliseconds. Pacing at 10 volts, no diaphragmatic stimulation. Ventricle fibrillation was induced on one occasion and terminated with a 22 joule shock with an impedance of 38 ohms resulting in sinus rhythm. Parameters mode to DDDR lower rate 60, upper rate 120. DIAGNOSIS 1. Successful placement of [facility] dual-chamber biventricular defibrillator. 2. Successful testing of [facility] dual-chamber biventricular defibrillator system. 3. Defibrillation threshold of 20 joules or less. DISPOSITION Mr. Damon will be monitored on telemetry after procedure. We will continue current medical program including therapy for congestive heart failure. Will continue maximum guideline directed medical therapy. The patient be discharged home tomorrow if stable. I will see him back for wound check and chronic device reprogramming in our office within 2 weeks. We will then initiate long-term monitoring of his device. MD TAYLOR Guevara /4:23 PM /9:26 PM
== END 2016-12-02 14:11 | disposition home or self-care (01) ==
LOC: HDOC 10:33 → HDIC 10:34 → HCIS 17:35 → HDOC 12-02 14:11
PROVIDERS: ATTEND Internal Medicine Interventional Cardiology
DX: I50.9 Heart failure, unspecified (principal); I44.7 Left bundle-branch block, unspecified; I42.9 Cardiomyopathy, unspecified; I47.2 Ventricular tachycardia; I49.01 Ventricular fibrillation; Z79.4 Long term (current) use of insulin; Z01.810 Encounter for preprocedural cardiovascular examination; Z01.818 Encounter for other preprocedural examination
CPT/HCPCS: 33225; 33249; 71010; 80048; 85025; 85610; 85730; 93005; 93620; C1730; C1882; C1895; C1898; C1900; J0690; J1644; J2250; J3010; J3370; J7040; J7050